=== PATIENT | female | born 1945 | race Caucasian/White ===

== ENCOUNTER → 2016-10-19 | Outpatient (CLI) | payer BC ==
[~2016-10-19] MED LIST: CHOL1CAP51 PO; CYAN3INJ IM; FLUD0.1T10 PO; HYDR10TA52 PO; LEVO125T72 PO; NXM/40 PO
--- NOTE | 2016-10-19 11:33 | DIAGNOSTIC IMAGING REPORT ---
RIGHT SECOND AND THIRD TOES 3 VIEWS CLINICAL HISTORY: Right toe pain status post trauma COMPARISON: None. DISCUSSION: No fractures or dislocations are visualized on the provided images. IMPRESSION: No fractures or dislocations identified. Electronically signed by: Jose Prater M.D. 10/19/2016 11:31 AM Dictated Date/Time: 10/19/2016 11:30 AM
== END | disposition home or self-care (01) ==
LOC: C.RAD 10:38
PROVIDERS: ATTEND Internal Medicine
DX: S99.921A Unspecified injury of right foot, initial encounter (principal); X58.XXXA Exposure to other specified factors, initial encounter

== ENCOUNTER → 2016-12-10 | Outpatient (CLI) | payer BC ==
[2016-12-10 12:21] LABS: BASO % 0.5 %; BASO ABS # 0.04 K/uL (0-0.2); COMPLETE YES; EOS % 1.3 %; HEMATOCRIT 42.8 % (37-47); IG% 0.1 %; LYMPH % 26.7 %; LYMPH ABS # 2.19 K/uL (1.2-3.4); MEAN CELL VOLUME 91.3 fL (80-100); MEAN CORPUSCULAR HEMOGLOBIN 29.6 pg (25-34); MEAN CORPUSCULAR HGB CONC 32.5 g/dl (32-36); MEAN PLATELET VOLUME 10.5 fL (7.4-10.4); NEUT % 61.4 %; PLATELET COUNT 371 K/uL (130-400); RED BLOOD COUNT 4.69 M/uL (4.2-5.4); WHITE BLOOD COUNT 8.21 K/uL (4.8-10.8)
[2016-12-10 13:11] LABS: ALT/SGPT 28 U/L (12-78); BLOOD UREA NITROGEN 15 mg/dl (7-18); BUN/CREATININE RATIO 20.6 (10-20); CARBON DIOXIDE 26 mmol/L (21-32); CHLORIDE 107 mmol/L (98-107); CHOLESTEROL 227 mg/dl (0-200); CREATININE 0.72 mg/dl (0.60-1.20); GLUCOSE 91 mg/dl (70-99); POTASSIUM 4.5 mmol/L (3.5-5.1); SODIUM 141 mmol/L (136-145); TRIGLYCERIDES 132 mg/dl (0-150); VERY LOW DENSITY LIPOPROT CALC 26 mg/dl
[2016-12-10 13:13] LABS: CALCIUM 9.7 mg/dl (8.5-10.1)
[2016-12-10 13:22] LABS: ALB/GLOB RATIO 0.9 (0.9-2); ALKALINE PHOSPHATASE 102 U/L (45-117); AST/SGOT 22 U/L (15-37); CHOLESTEROL/HDL RATIO 3.4; HDL CHOLESTEROL 67 mg/dl; LDL CHOLESTEROL CALCULATED 134 mg/dl; THYROID STIMULATING HORMONE 0.362 uIu/ml (0.300-4.500)
== END | disposition home or self-care (01) ==
LOC: C.LABBFT 08:41
PROVIDERS: ATTEND Nurse Practitioner
DX: D51.0 Vitamin B12 deficiency anemia due to intrinsic factor deficiency (principal); E21.3 Hyperparathyroidism, unspecified; E03.9 Hypothyroidism, unspecified

== ENCOUNTER → 2016-12-17 | Outpatient (CLI) | payer BC | END | disposition home or self-care (01) | LOC: C.PATHSPEC 13:31 | PROVIDERS: ATTEND Dermatology | DX: C44.41 Basal cell carcinoma of skin of scalp and neck (principal) ==

== ENCOUNTER → 2017-06-16 | Outpatient (CLI) | payer BC ==
--- NOTE | 2017-06-16 14:25 | MAMMOGRAPHY REPORT ---
BILATERAL DIGITAL SCREENING MAMMOGRAM TOMOSYNTHESIS WITH CAD: 06/16/2017 CLINICAL HISTORY: Routine screening. Patient has no complaints. TECHNIQUE: Breast tomosynthesis in addition to standard 2D mammography was performed. Current study was also evaluated with a Computer Aided Detection (CAD) system. COMPARISON: Comparison is made to exams dated: 06/15/2016 mammogram, 06/11/2015 mammogram, 4 mammogram, 05/22/2013 mammogram, 05/20/2012 mammogram, and 05/18/2011 mammogram - [facility]. BREAST COMPOSITION: There are scattered areas of fibroglandular density in both breasts. FINDINGS: No suspicious masses, calcifications, or areas of architectural distortion are noted in ei ther breast. There has been no significant interval change compared to prior exams. IMPRESSION: ACR BI-RADS CATEGORY 1: NEGATIVE There is no mammographic evidence of malignancy. A 1 year screening mammogram is recommended. The pa tient will receive written notification of the results. Approximately 10% of breast cancers are not detected with mammography. A negative mammographic report should not delay biopsy if a clinically suggestive mass is present. Yamile Wsahington M.D. ah/:06/16/2017 10:51:16 Infant Lead Teacher: Juliana TINSLEY(Ria)(M), [facility] letter sent: Normal 1/2 BI-RADS Code: ACR BI-RADS Category 1: Negative
== END ==
LOC: C.MAMM 09:41
PROVIDERS: ATTEND Internal Medicine
DX: Z12.31 Encounter for screening mammogram for malignant neoplasm of breast (principal)

== ENCOUNTER → 2018-04-01 | Outpatient (CLI) | payer BC | END | disposition home or self-care (01) | LOC: C.LABBFT 07:35 | PROVIDERS: ATTEND Physician Assistant Medical | DX: E03.9 Hypothyroidism, unspecified (principal) ==

== ENCOUNTER 2021-05-05 15:06 | Observation (INO) ==
[2021-05-05] MEDS ORDERED: ASPIRIN CHEW 324 MG PO STA ×2 (17:53→17:59)
--- NOTE | 2021-05-05 18:08 | Emergency Department Note ---
Impression & Plan Chest pain on exertion, [facility] (dyspnea on exertion) ED Provider Note NAME: FAHEEM MURRAY AGE: 76 SEX: F : 1945 ARRIVES VIA: Walk-In INFORMANT: Patient, ED PROVIDER(S): Ross Gonzalez DO CHIEF COMPLAINT: Chest pain HPI: The patient is a 76-year-old female who presented to the emergency department for an evaluation of chest pain. The patient describes anterior chest pain which she describes as a pressure. She states the pain began over the course the last few days. She is noticed it more with exertion. She also notices shortness of breath as well as chest pain. She denies having any nausea or vomiting. She denies having any back pain or abdominal pain. She has noticed no lower extremity pain. Pain at this time is significantly improved at rest. She called her family doctor to try to have an appointment to be seen but instead was referred to the emergency department for further evaluation. The patient states that the pain was worse when she walked back from triage. She is resting the bed and says that this helps her pain and she feels better. ROS: See above HPI for pertinent positives & negatives. A total of 10 systems reviewed and were otherwise negative. PAST MEDICAL HISTORY: See Below PAST SURGICAL HISTORY: See Below FAMILY HISTORY: See Below SOCIAL HISTORY: See Below HOME MEDICATIONS: See Below ALLERGIES: See Below VITALS: See Below PHYSICAL EXAMINATION: GENERAL: Patient is awake alert in no acute distress patient is resting comfortably and showing no signs of anxiety EYES: The conjunctivae are clear. The pupils are round and reactive. EARS, NOSE, MOUTH AND THROAT: The nose is without any evidence of any deformity. NECK: The neck is nontender and supple. RESPIRATORY: Normal respiratory effort is noted there is no evidence of wheezing rhonchi or rales CARDIOVASCULAR: Regular rate and rhythm noted there no murmurs rubs or gallops normal S1 normal S2. GASTROINTESTINAL: The abdomen is soft. Abdomen is nontender. MUSCULOSKELETAL/EXTREMITIES: There is no evidence of gross deformity full range of motion is noted in the hips and shoulders. SKIN: There is no obvious evidence of any rash. There are no petechiae, pallor or cyanosis noted. NEUROLOGIC: Patient is awake alert and oriented x3. MEDICAL DECISION MAKING: The patient is a 76-year-old female who presented to the emergency department for an evaluation of chest pain and shortness of breath with exertion. The patient started noticing increasing shortness of breath with any ambulation. The patient denies having any recent cough or fever. She was not seen by her primary care physician for the symptoms. I discussed the patient's laboratory and radiographic studies with her. I also discussed the limitations of the emergency department work-up her chest pain with her. At this time given the patient's age and comorbidities I do not feel that she would be a good candidate for outpatient work-up. For this reason I discussed her case with the on-call [facility] hospitalist. The patient was agreeable to this plan. She was treated with aspirin in the emergency department. Triage Nursing notes reviewed. Prior medical records reviewed Vital Signs: reviewed and remarkable for no significant abnormalities Differential diagnosis: Cardiac ischemia, aortic dissection, pulmonary embolism, pneumothorax, pneumonia, pericarditis, myocarditis, esophageal rupture, GERD, cholecystitis, pancreatitis, musculoskeletal, as well as other pathologies. ER treatment provided: See below Diagnostics interpreted by me: ECG: EKG was obtained in the emergency department. My interpretation is normal sinus rhythm at 93 bpm. There was no ectopy. Anterior T wave inversions were noted. This was compared to a tracing from October 312020. No significant changes were noted. Cardiac Monitoring: An order was placed for continuous cardiac monitoring. The monitor shows a rate of 76 bpm with sinus rhythm. Laboratory studies: As stated above and show below. Imaging studies: See below Consultation(s): I discussed this case with Dr. Navarro. He will evaluate the patient in the emergency department for further management and disposition. Past Med/Surg History Medical History (Updated 05/06/21 @ 00:04 by Ross Gonzalez DO) Abnormal liver enzymes Accidental medication overdose Acute hypotension Anisocoria Basal cell carcinoma Diarrhea History of basal cell carcinoma Hyperparathyroidism Osteoporosis Seborrheic keratosis Thrombocytosis Surgical History History of colonoscopy History of hysteroscopy S/P cholecystectomy (09/29/12) Family History Mother Heart disease Hypertension Brother Heart disease Denies family history of Ovarian cancer Prostate cancer Diabetes Myocardial infarction Breast cancer Colorectal cancer Social History Smoking Status: Never smoker Second Hand Exposure: Yes; Hx Alcohol Use: No Hx Substance Use: No Preferred Language: Lao Communication Ability: Effective Visual Impairment: No Limitations Hearing Ability: Normal [employer] Application Developer Required: No Beliefs That Will Affect Care: None marital status: Current Living Situation: Spouse current occupational status: retired current occupation: retired from career working with the [email or web address] office at [employer] Feels Safe at Home: Yes Dental Care, Regularly: No Physical Activity Frequency: 3-4 Times per Week Seatbelt Use: always Sunscreen Use: Yes Assistive Devices: Glasses Allergies Allergies Allergy/AdvReac Type Severity Reaction Status Date / Time No Known Allergies Allergy Verified 05/05/21 18:24 Home Meds Home Medications Medication Instructions Recorded Confirmed cyanocobalamin (vitamin B-12) 1,000 mcg IM MONTHLY ml 01/25/19 05/05/21 1,000 mcg/mL injection solution alendronate 35 mg tablet 35 mg PO WK 10/31/20 05/05/21 calcium carbonate 600 mg calcium 1,500 mg PO QAM 05/05/21 05/05/21 (1,500 mg) tablet cholecalciferol (vitamin D3) 25 25 mcg PO QAM 05/05/21 05/05/21 mcg (1,000 unit) capsule esomeprazole magnesium 40 mg 40 mg PO QAM 05/05/21 05/05/21 capsule,delayed release fludrocortisone 0.1 mg tablet 0.05 mg PO QAM 05/05/21 05/05/21 hydrocortisone 10 mg tablet 5 - 15 mg PO BID 05/05/21 05/05/21 levothyroxine 100 mcg tablet 100 mcg PO QAM 05/05/21 05/05/21 Results & Data (ED) Vital Signs Vital Signs - 24 hr 05/05/21 15:20 05/05/21 17:46 05/05/21 17:58 Temperature 36.3 C L Temperature Source Temporal Artery Scan Pulse Rate 101 H 80 79 Pulse Rate from SpO2 Sensor 80 81 Pulse Rhythm Regular Pulse Strength Normal Respiratory Rate 20 14 17 Respiratory Effort / Characteristics Non-Labored Spontaneous Respiratory Depth Normal Respiratory Pattern Regular Blood Pressure 128/77 129/95 164/82 H Blood Pressure Mean 94 106 109 Blood Pressure Position Sitting Pulse Oximetry 97 96 98 Oxygen Delivery Method Room Air Sepsis Recent Fever Within 48 Hours No Sepsis New/Unexplained Change in Mental Status N/A Sepsis Action Taken by Nursing No Action Required 05/05/21 18:00 05/05/21 18:15 05/05/21 18:30 Temperature Temperature Source Pulse Rate 80 85 79 Pulse Rate from SpO2 Sensor 80 86 80 Pulse Rhythm Pulse Strength Respiratory Rate 16 19 14 Respiratory Effort / Characteristics Respiratory Depth Respiratory Pattern Blood Pressure 129/94 157/80 H 150/88 H Blood Pressure Mean 105 105 108 Blood Pressure Position Pulse Oximetry 98 96 98 Oxygen Delivery Method Sepsis Recent Fever Within 48 Hours Sepsis New/Unexplained Change in Mental Status Sepsis Action Taken by Nursing 05/05/21 18:45 05/05/21 19:00 05/05/21 19:15 Temperature Temperature Source Pulse Rate 80 81 75 Pulse Rate from SpO2 Sensor 80 80 76 Pulse Rhythm Pulse Strength Respiratory Rate 21 19 17 Respiratory Effort / Characteristics Respiratory Depth Respiratory Pattern Blood Pressure 135/79 160/86 H 135/80 Blood Pressure Mean 97 110 98 Blood Pressure Position Pulse Oximetry 98 98 98 Oxygen Delivery Method Sepsis Recent Fever Within 48 Hours Sepsis New/Unexplained Change in Mental Status Sepsis Action Taken by Nursing 05/05/21 19:30 05/05/21 19:45 05/05/21 20:00 Temperature Temperature Source Pulse Rate 75 75 77 Pulse Rate from SpO2 Sensor 76 75 78 Pulse Rhythm Pulse Strength Respiratory Rate 13 14 18 Respiratory Effort / Characteristics Respiratory Depth Respiratory Pattern Blood Pressure 159/93 H 136/72 128/69 Blood Pressure Mean 115 93 88 Blood Pressure Position Pulse Oximetry 98 98 98 Oxygen Delivery Method Sepsis Recent Fever Within 48 Hours Sepsis New/Unexplained Change in Mental Status Sepsis Action Taken by Nursing 05/05/21 20:15 05/05/21 20:30 05/05/21 20:45 Temperature Temperature Source Pulse Rate 78 76 76 Pulse Rate from SpO2 Sensor 78 76 81 Pulse Rhythm Pulse Strength Respiratory Rate 13 16 16 Respiratory Effort / Characteristics Respiratory Depth Respiratory Pattern Blood Pressure 128/77 148/78 H 139/74 Blood Pressure Mean 94 101 95 Blood Pressure Position Pulse Oximetry 98 99 97 Oxygen Delivery Method Sepsis Recent Fever Within 48 Hours Sepsis New/Unexplained Change in Mental Status Sepsis Action Taken by Nursing 05/05/21 21:00 05/05/21 21:15 05/05/21 21:30 Temperature Temperature Source Pulse Rate 84 78 78 Pulse Rate from SpO2 Sensor 80 81 78 Pulse Rhythm Pulse Strength Respiratory Rate 22 12 12 Respiratory Effort / Characteristics Respiratory Depth Respiratory Pattern Blood Pressure 155/85 H 143/79 H 128/76 Blood Pressure Mean 108 100 93 Blood Pressure Position Pulse Oximetry 95 99 99 Oxygen Delivery Method Sepsis Recent Fever Within 48 Hours Sepsis New/Unexplained Change in Mental Status Sepsis Action Taken by Nursing 05/05/21 21:45 05/05/21 23:00 Temperature Temperature Source Pulse Rate 84 76 Pulse Rate from SpO2 Sensor 83 Pulse Rhythm Pulse Strength Respiratory Rate 14 18 Respiratory Effort / Characteristics Respiratory Depth Respiratory Pattern Blood Pressure 148/76 H 121/66 Blood Pressure Mean 100 84 Blood Pressure Position Pulse Oximetry 98 97 Oxygen Delivery Method Sepsis Recent Fever Within 48 Hours Sepsis New/Unexplained Change in Mental Status Sepsis Action Taken by [facility] Medications Current Medication List: was personally reviewed by me Laboratory Data Attestation: I reviewed the patient's lab results. Result diagrams: 05/05/21 18:07 05/05/21 18:07 Lab Results 05/05/21 05/05/21 05/05/21 Range/Units 18:07 18:07 18:07 WBC 12.54 H (4.8-10.8) K/uL RBC 4.85 (4.2-5.4) M/uL Hgb 14.7 (12.0-16.0) g/dL Hct 43.9 (37-47) % MCV 90.5 (80-100) fL MCH 30.3 (25-34) pg MCHC 33.5 (32-36) g/dL RDW Std Deviation 43.6 (36.4-46.3) fL RDW Coeff of Chano 13.1 (11.5-14.5) % Plt Count 413 H (130-400) K/uL MPV 9.9 (7.4-10.4) fL Immature Gran % (Auto) 0.6 % Neut % (Auto) 57.9 % Lymph % (Auto) 27.6 % Harrison % (Auto) 12.0 % Eos % (Auto) 1.4 % Baso % (Auto) 0.5 % Neut # (Auto) 7.27 H (1.4-6.5) K/uL Lymph # (Auto) 3.46 H (1.2-3.4) K/uL Harrison # (Auto) 1.51 H (0.11-0.59) K/uL Eos # (Auto) 0.17 (0-0.5) K/uL Baso # (Auto) 0.06 (0-0.2) K/uL Immature Gran # (Auto) 0.07 H (0.00-0.02) K/uL PT 9.8 (9.0-12.0) Seconds INR 1.0 (0.9-1.1) APTT 26.5 (21.0-31.0) Seconds PTT Ratio 1.0 Sodium 130 L (136-145) mmol/L Potassium 4.9 (3.5-5.1) mmol/L Chloride 98 (98-107) mmol/L Carbon Dioxide 26 (21-32) mmol/L Anion Gap 6.0 (3-11) BUN 21 H (7-18) mg/dl Creatinine 1.06 (0.6-1.2) mg/dl Est Cr Clr Drug Dosing 45.9 ml/min Est GFR ( Amer) 59.5 ml/min Est GFR (Non-Af Amer) 51.3 ml/min BUN/Creatinine Ratio 19.8 (10-20) Glucose 100 H (70-99) mg/dl Calcium 10.0 (8.5-10.1) mg/dl Total Bilirubin 0.2 (0.2-1) mg/dl AST 41 H (15-37) U/L ALT 45 (12-78) U/L Alkaline Phosphatase 100 (45-117) U/L Troponin I < 0.015 (0-0.045) ng/ml Total Protein 8.7 H (6.4-8.2) gm/dl Albumin 3.9 (3.4-5.0) gm/dl Globulin 4.8 H (2.5-4.0) gm/dl Albumin/Globulin Ratio 0.8 L (0.9-2) Lipase 136 (73-393) U/L COVID-19 Eval Order SARS-CoV-2 (PCR) (Negative) 05/05/21 05/05/21 Range/Units 18:13 18:13 WBC (4.8-10.8) K/uL RBC (4.2-5.4) M/uL Hgb (12.0-16.0) g/dL Hct (37-47) % MCV (80-100) fL MCH (25-34) pg MCHC (32-36) g/dL RDW Std Deviation (36.4-46.3) fL RDW Coeff of Chano (11.5-14.5) % Plt Count (130-400) K/uL MPV (7.4-10.4) fL Immature Gran % (Auto) % Neut % (Auto) % Lymph % (Auto) % Harrison % (Auto) % Eos % (Auto) % Baso % (Auto) % Neut # (Auto) (1.4-6.5) K/uL Lymph # (Auto) (1.2-3.4) K/uL Harrison # (Auto) (0.11-0.59) K/uL Eos # (Auto) (0-0.5) K/uL Baso # (Auto) (0-0.2) K/uL Immature Gran # (Auto) (0.00-0.02) K/uL PT (9.0-12.0) Seconds INR (0.9-1.1) APTT (21.0-31.0) Seconds PTT Ratio Sodium (136-145) mmol/L Potassium (3.5-5.1) mmol/L Chloride (98-107) mmol/L Carbon Dioxide (21-32) mmol/L Anion Gap (3-11) BUN (7-18) mg/dl Creatinine (0.6-1.2) mg/dl Est Cr Clr Drug Dosing ml/min Est GFR ( Amer) ml/min Est GFR (Non-Af Amer) ml/min BUN/Creatinine Ratio (10-20) Glucose (70-99) mg/dl Calcium (8.5-10.1) mg/dl Total Bilirubin (0.2-1) mg/dl AST (15-37) U/L ALT (12-78) U/L Alkaline Phosphatase (45-117) U/L Troponin I (0-0.045) ng/ml Total Protein (6.4-8.2) gm/dl Albumin (3.4-5.0) gm/dl Globulin (2.5-4.0) gm/dl Albumin/Globulin Ratio (0.9-2) Lipase (73-393) U/L COVID-19 Eval Order Covid19 at [facility] SARS-CoV-2 (PCR) NEGATIVE (Negative) Administered Medications Potassium Chloride/Sodium Chloride (Normal Saline W/20 Meq Kcl) 20 meq in 1,000 mls @ 100 mls/hr IV .Q10H RODRI Stop: 06/04/21 22:04 Last Admin: 05/05/21 22:36 Dose: 100 mls/hr Documented by: [id number] Discontinued Medications Aspirin (Aspirin Chew 324 Mg) 324 mg PO NOW STA Stop: 05/05/21 17:54 Last Admin: 05/05/21 18:13 Dose: 324 mg Documented by: [id number] Aspirin (Aspirin Chew 324 Mg) 324 mg PO NOW STA Stop: 05/05/21 18:00 Last Admin: 05/05/21 18:13 Dose: Not Given Documented by: [id number] Nitroglycerin (Nitroglycerin 2% Ointment 30gm Tube) 0.5 inch EXT NOW STA Stop: 05/05/21 22:02 Last Admin: 05/05/21 22:34 Dose: 0.5 inch Documented by: [id number] Imaging Data Radiologist's Impression: Chest X-Ray 05/05/21 17:53 XR chest 1V portable CLINICAL HISTORY: Chest Pain COMPARISON STUDY: October 31, 2020 FINDINGS: No pneumothorax. No pleural effusion. No large infiltrates or consolidative lesions are seen. Cardiomediastinal silhouette is within normal limits in size. No significant pulmonary vascular congestion.. Osseous structures: Mild osteopenia and minimal degenerative changes of the spine. IMPRESSION: 1. No large infiltrates or consolidative lesions. ACT 112: Negative or not required by law. The above report was generated using voice recognition software. It may contain grammatical, syntax or spelling errors. Electronically signed by: Yuli Hathaway DO 05/05/2021 8:11 PM Discharge Plan Visit Data Chief Complaint: Shortness of Breath/Dyspnea Stated Complaint: CHEST PRESSURE, SOB,DIZZY ED Provider: Ross Gonzalez Discharge Problem: Chest pain on exertion, [facility] (dyspnea on exertion) Patient Disposition: Being Evaluated by Hospitalist Condition: Good Forms Stand Alone Forms: [employer] Prescriptions Prescriptions: No Action cyanocobalamin (vitamin B-12) 1,000 mcg/mL solution 1,000 mcg IM MONTHLY RF: 0 alendronate 35 mg tablet 35 mg PO WK RF: 0 levothyroxine 100 mcg tablet 100 mcg PO QAM RF: 0 calcium carbonate 600 mg calcium (1,500 mg) tablet 1,500 mg PO QAM RF: 0 esomeprazole magnesium 40 mg capsule,delayed release(DR/EC) 40 mg PO QAM RF: 0 hydrocortisone 10 mg tablet 5 - 15 mg PO BID RF: 0 fludrocortisone 0.1 mg tablet 0.05 mg PO QAM RF: 0 cholecalciferol (vitamin D3) 25 mcg (1,000 unit) capsule 25 mcg PO QAM RF: 0 Referrals Referrals: Rafita Onofre III, MD [Primary Care Provider] -
[2021-05-05 18:21] LABS: Basophils # (auto) 0.06 K/uL (0-0.2); Basophils % (auto) 0.5 %; Eosinophils # (auto) 0.17 K/uL (0-0.5); Eosinophils % (auto) 1.4 %; Hematocrit (blood only) 43.9 % (37-47); Hemoglobin 14.7 g/dL (12.0-16.0); Immature Granulocytes # (auto) 0.07 K/uL (0.00-0.02); Immature Granulocytes % (auto) 0.6 %; Lymphocytes # (auto) 3.46 K/uL (1.2-3.4); Lymphocytes % (auto) 27.6 %; Mean Corpuscular Hemoglobin 30.3 pg (25-34); Mean Corpuscular Hgb Conc 33.5 g/dL (32-36); Mean Corpuscular Volume 90.5 fL (80-100); Mean Platelet Volume 9.9 fL (7.4-10.4); Monocytes # (auto) 1.51 K/uL (0.11-0.59); Neutrophils # (auto) 7.27 K/uL (1.4-6.5); Neutrophils % (auto) 57.9 %; Platelet Count 413 K/uL (130-400); RDW Coefficient of Variation 13.1 % (11.5-14.5); RDW Standard Deviation 43.6 fL (36.4-46.3); Red Blood Count 4.85 M/uL (4.2-5.4); White Blood Count 12.54 K/uL (4.8-10.8)
[2021-05-05 18:36] LABS: Partial Thromboplastin Time 26.5 Seconds (21.0-31.0); Prothrombin Time 9.8 Seconds (9.0-12.0)
[2021-05-05 18:46] LABS: Alanine Aminotransferase 45 U/L (12-78); Albumin Level 3.9 gm/dl (3.4-5.0); Aspartate Aminotransferase 41 U/L (15-37); BUN Creatinine Ratio 19.8 (10-20); Blood Urea Nitrogen 21 mg/dl (7-18); Carbon Dioxide 26 mmol/L (21-32); Chloride 98 mmol/L (98-107); Creatinine Clr Calc Pharmacy 45.9 ml/min; Est GFR (African American) 59.5 ml/min; Est GFR (Non-African American) 51.3 ml/min; Glucose 100 mg/dl (70-99); Lipase 136 U/L (73-393); Potassium 4.9 mmol/L (3.5-5.1); Sodium 130 mmol/L (136-145)
[2021-05-05 18:51] LABS: Albumin Globulin Ratio 0.8 (0.9-2); Alkaline Phosphatase 100 U/L (45-117); Bilirubin,Total 0.2 mg/dl (0.2-1); Globulin 4.8 gm/dl (2.5-4.0); Total Protein 8.7 gm/dl (6.4-8.2); Troponin I < 0.015 ng/ml (0-0.045)
--- NOTE | 2021-05-05 20:12 | XRay Report ---
XR chest 1V portable CLINICAL HISTORY: Chest Pain COMPARISON STUDY: October 31, 2020 FINDINGS: No pneumothorax. No pleural effusion. No large infiltrates or consolidative lesions are seen. Cardiomediastinal silhouette is within normal limits in size. No significant pulmonary vascular congestion.. Osseous structures: Mild osteopenia and minimal degenerative changes of the spine. IMPRESSION: 1. No large infiltrates or consolidative lesions. ACT 112: Negative or not required by law. The above report was generated using voice recognition software. It may contain grammatical, syntax o r spelling errors. Electronically signed by: Yuli Hathaway DO 05/05/2021 8:11 PM
--- NOTE | 2021-05-05 21:52 | History & Physical Report ---
Date of Service May 05, 2021 Assessment & Plan (1) Chest pain on exertion: Plan: Substernal chest pressure/DUKE- The patient will be admitted to telemetry for serial cardiac enzymes, serial EKG's, cardiac rhythm monitoring and a 2-D echocardiogram with Dopplers. Patient did receive aspirin 324 mg from the ED Start aspirin 81 mg every morning Add Nitropaste 1/2 inch anterior chest wall every 6 hours Acetaminophen 600 mg p.o. every 6 hours as needed mild pain or fever EKG shows normal sinus rhythm with no acute ST-T changes If work-up is negative, patient should have a stress echocardiogram (2) DUKE (dyspnea on exertion): Plan: See above (3) Hypothyroidism: Plan: Continue levothyroxine 100 mcg every morning (4) Dyslipidemia: Plan: Reported as a history but no medications Check a fasting lipid panel (5) Chronic reflux esophagitis: Plan: Continue esomeprazole/pantoprazole (6) Philadelphia's disease: Plan: Continue fludrocortisone 0.05 mg p.o. every morning Her baseline hydrocortisone dosing is 15 mg every morning and 5 mg every 4PM If remains in hospital, will change to 15 mg p.o. twice daily for stress dosing (7) Vitamin B12 deficiency: Plan: Takes B12 1000 mcg IM monthly as an outpatient History of Present Illness Chief Complaint: The patient presents to the emergency department with complaint of fatigue over the past few days, but today developed substernal chest pressure and shortness of breath that increased in frequency and intensity as the day progressed, but in all instances was relieved by rest. Primary Care Provider: Rafita Onofre MD The patient is a 76-year-old female with a past tree including vitamin B12 deficiency, basal cell carcinoma, vitamin D deficiency, pro cyst. 5 glucose, hypothyroid is him high for. Thyroidism, distal anemia, chronic reflux fasciitis, anisocoria and Derrick's disease. She presents with symptoms as noted above. Prior the past few days, she has had no significant symptoms like these. She does periodically have fatigue associated with her Philadelphia's disease, but not to the extent as noted over the past few days. Allergies Allergy/AdvReac Type Severity Reaction Status Date / Time No Known Allergies Allergy Verified 05/05/21 18:24 Home Medications Medication Instructions Recorded Confirmed Type cyanocobalamin (vitamin B-12) 1,000 mcg IM MONTHLY ml 01/25/19 05/05/21 History 1,000 mcg/mL injection solution alendronate 35 mg tablet 35 mg PO WK 10/31/20 05/05/21 History calcium carbonate 600 mg calcium 1,500 mg PO QAM 05/05/21 05/05/21 History (1,500 mg) tablet cholecalciferol (vitamin D3) 25 25 mcg PO QAM 05/05/21 05/05/21 History mcg (1,000 unit) capsule esomeprazole magnesium 40 mg 40 mg PO QAM 05/05/21 05/05/21 History capsule,delayed release fludrocortisone 0.1 mg tablet 0.05 mg PO QAM 05/05/21 05/05/21 History hydrocortisone 10 mg tablet 5 - 15 mg PO BID 05/05/21 05/05/21 History levothyroxine 100 mcg tablet 100 mcg PO QAM 05/05/21 05/05/21 History Past Med/Surg History Medical History (Updated 05/06/21 @ 00:04 by Ross Gonzalez DO) Abnormal liver enzymes Accidental medication overdose Acute hypotension Anisocoria Basal cell carcinoma Diarrhea History of basal cell carcinoma Hyperparathyroidism Osteoporosis Seborrheic keratosis Thrombocytosis Surgical History History of colonoscopy History of hysteroscopy S/P cholecystectomy (09/29/12) Family History Mother Heart disease Hypertension Brother Heart disease Denies family history of Ovarian cancer Prostate cancer Diabetes Myocardial infarction Breast cancer Colorectal cancer Social History Smoking Status: Never smoker Second Hand Exposure: Yes; Hx Alcohol Use: No Hx Substance Use: No Preferred Language: Irish Communication Ability: Effective Visual Impairment: No Limitations Hearing Ability: Normal Truck Farmer Required: No Beliefs That Will Affect Care: None marital status: Current Living Situation: Spouse current occupational status: retired 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 [employer] Feels Safe at Home: Yes Dental Care, Regularly: No Physical Activity Frequency: 3-4 Times per Week Seatbelt Use: always Sunscreen Use: Yes Assistive Devices: Glasses Review of Systems Review of Systems: The patient denies palpitations, cough, lower extremity swelling, sore throat, fevers, chills, sweats, nausea, vomiting, diarrhea , constipation, abdominal pain, pelvic pain, blood in urine or stool, dysuria, urinary frequency or urgency, lightheadedness, dizziness, headache, memory loss, loss of consciousness, rash, abnormal bruising or bleeding, imbalance, focal weakness, numbness or tingling in arms or legs, generalized arthralgias or myalgias, back or neck pain, or night sweats. The review of systems is otherwise negative other than for that already noted above, and at least 10 systems have been reviewed. Physical Exam Physical Exam: The patient is awake, alert and oriented 3, well developed and well nourished, normocephalic and atraumatic, lying in bed and in no acute distress. HEENT--PERRL, EOMI, mucous membranes and oropharynx normal. Neck--supple. No JVD. No bruits. Thyroid normal, trachea midline, no adenopathy. Heart--normal S1 and S2. No murmurs, rubs or gallops. Lungs--clear bilaterally, no respiratory distress, no accessory muscle use. Abdomen--normal bowel sounds and soft. Nontender. Nondistended, no hernias or masses, no organomegaly. Extremities--no cyanosis or clubbing. No edema. Dermatologic--normal skin turgor, normal color, no abnormal lymph nodes, no rash. Neurologic--cranial nerves II through XII grossly intact. Rheumatologic--normal range of motion. Psychiatric--normal affect. Results & Data Results & Data ([facility]) Vital Signs (Past 12 Hours) Vital Signs Temp Pulse Resp BP Pulse Ox 05/05/21 21:30 78 12 128/76 99 05/05/21 21:15 78 12 143/79 H 99 05/05/21 21:00 84 22 155/85 H 95 05/05/21 20:45 76 16 139/74 97 05/05/21 20:30 76 16 148/78 H 99 05/05/21 20:15 78 13 128/77 98 05/05/21 20:00 77 18 128/69 98 05/05/21 19:45 75 14 136/72 98 05/05/21 19:30 75 13 159/93 H 98 05/05/21 19:15 75 17 135/80 98 05/05/21 19:00 81 19 160/86 H 98 05/05/21 18:45 80 21 135/79 98 05/05/21 18:30 79 14 150/88 H 98 05/05/21 18:15 85 19 157/80 H 96 05/05/21 18:00 80 16 129/94 98 05/05/21 17:58 79 17 164/82 H 98 05/05/21 17:46 80 14 129/95 96 05/05/21 15:20 97.3 F L 101 H 20 128/77 97 Laboratory Results Laboratory Results WBC 12.54 K/uL (4.8-10.8) H 05/05/21 18:07 RBC 4.85 M/uL (4.2-5.4) 05/05/21 18:07 Hgb 14.7 g/dL (12.0-16.0) 05/05/21 18:07 Hct 43.9 % (37-47) 05/05/21 18:07 MCV 90.5 fL (80-100) 05/05/21 18:07 MCH 30.3 pg (25-34) 05/05/21 18:07 MCHC 33.5 g/dL (32-36) 05/05/21 18:07 RDW Std Deviation 43.6 fL (36.4-46.3) 05/05/21 18:07 RDW Coeff of [place] 13.1 % (11.5-14.5) 05/05/21 18:07 Plt Count 413 K/uL (130-400) H 05/05/21 18:07 MPV 9.9 fL (7.4-10.4) 05/05/21 18:07 Immature Gran % (Auto) 0.6 % 05/05/21 18:07 Neut % (Auto) 57.9 % 05/05/21 18:07 Lymph % (Auto) 27.6 % 05/05/21 18:07 [place] % (Auto) 12.0 % 05/05/21 18:07 Eos % (Auto) 1.4 % 05/05/21 18:07 Baso % (Auto) 0.5 % 05/05/21 18:07 Neut # (Auto) 7.27 K/uL (1.4-6.5) H 05/05/21 18:07 Lymph # (Auto) 3.46 K/uL (1.2-3.4) H 05/05/21 18:07 [place] # (Auto) 1.51 K/uL (0.11-0.59) H 05/05/21 18:07 Eos # (Auto) 0.17 K/uL (0-0.5) 05/05/21 18:07 Baso # (Auto) 0.06 K/uL (0-0.2) 05/05/21 18:07 Immature Gran # (Auto) 0.07 K/uL (0.00-0.02) H 05/05/21 18:07 PT 9.8 Seconds (9.0-12.0) 05/05/21 18:07 INR 1.0 (0.9-1.1) 05/05/21 18:07 APTT 26.5 Seconds (21.0-31.0) 05/05/21 18:07 PTT Ratio 1.0 05/05/21 18:07 Sodium 130 mmol/L (136-145) L 05/05/21 18:07 Potassium 4.9 mmol/L (3.5-5.1) 05/05/21 18:07 Chloride 98 mmol/L (98-107) 05/05/21 18:07 Carbon Dioxide 26 mmol/L (21-32) 05/05/21 18:07 Anion Gap 6.0 (3-11) 05/05/21 18:07 BUN 21 mg/dl (7-18) H 05/05/21 18:07 Creatinine 1.06 mg/dl (0.6-1.2) 05/05/21 18:07 Est Cr Clr Drug Dosing 45.9 ml/min 05/05/21 18:07 Est GFR ( Amer) 59.5 ml/min 05/05/21 18:07 Est GFR (Non-Af Amer) 51.3 ml/min 05/05/21 18:07 BUN/Creatinine Ratio 19.8 (10-20) 05/05/21 18:07 Glucose 100 mg/dl (70-99) H 05/05/21 18:07 Calcium 10.0 mg/dl (8.5-10.1) 05/05/21 18:07 Total Bilirubin 0.2 mg/dl (0.2-1) 05/05/21 18:07 AST 41 U/L (15-37) H 05/05/21 18:07 ALT 45 U/L (12-78) 05/05/21 18:07 Alkaline Phosphatase 100 U/L (45-117) 05/05/21 18:07 Troponin I < 0.015 ng/ml (0-0.045) 05/05/21 18:07 Total Protein 8.7 gm/dl (6.4-8.2) H 05/05/21 18:07 Albumin 3.9 gm/dl (3.4-5.0) 05/05/21 18:07 Globulin 4.8 gm/dl (2.5-4.0) H 05/05/21 18:07 Albumin/Globulin Ratio 0.8 (0.9-2) L 05/05/21 18:07 Lipase 136 U/L (73-393) 05/05/21 18:07 COVID-19 Eval Order Covid19 at [facility] 05/05/21 18:13 SARS-CoV-2 (PCR) NEGATIVE (Negative) 05/05/21 18:13 Impressions Chest X-Ray 05/05/21 17:53 XR chest 1V portable CLINICAL HISTORY: Chest Pain COMPARISON STUDY: October 31, 2020 FINDINGS: No pneumothorax. No pleural effusion. No large infiltrates or consolidative lesions are seen. Cardiomediastinal silhouette is within normal limits in size. No significant pulmonary vascular congestion.. Osseous structures: Mild osteopenia and minimal degenerative changes of the spine. IMPRESSION: 1. No large infiltrates or consolidative lesions. ACT 112: Negative or not required by law. The above report was generated using voice recognition software. It may contain grammatical, syntax or spelling errors. Electronically signed by: Yuli Hathaway DO 05/05/2021 8:11 PM ECG Additional Comments: FAHEEM MURRAY ID:[id number] 05-MAY-2021 15:28:32 [facility]- EDSTAT ROUTINE RETRIEVAL Normal sinus rhythm Normal ECG When compared with ECG of 31-OCT-2020 19:08, No significant change was found 25mm/s 10mm/mV 150Hz 9.0.9 12SL 241 KRUPA: 10 Unconfirmed Vent. rate 93 BPM KS interval 158 ms QRS duration 64 ms QT/QTc 324/402 ms P-R-T axes 54 34 34 1945 (76 yr) Female 1in 0lb Room: L Code Status & VTE Plan Code Status Full code VTE Prophylaxis Plan VTE Prophylaxis will be ordered: Yes PG Care Time/CCT Total # of Minutes Spent Total Time Spent with Patient: Total time spent is greater than 50% in coordination of care (as documented) at patient's floor/unit and/or counseling patient: Coding Level of Care Code INT OBSERVATION CARE 70M LVL 3 Diagnoses Chest pain on exertion R07.9 DUKE (dyspnea on exertion) R06.00 Hypothyroidism E03.9 Dyslipidemia E78.5 Chronic reflux esophagitis K21.0 Derrick's disease E27.1 Vitamin B12 deficiency E53.8
[2021-05-05] MEDS ORDERED: NITROGLYCERIN 2% OINTMENT 30GM TUBE EXT STA (22:01)
[2021-05-05] MEDS: NSS + 20MEQ KCL 20 MEQ/1,000 ML BAG IV SCH (22:36)
[2021-05-06] MEDS ORDERED: ONDANSETRON INJ 2 MG/ML 2 ML VIAL IV PRN (00:29)
[2021-05-06] MEDS ORDERED: ACETAMINOPHEN 325 MG TAB PO PRN (00:29)
[2021-05-06] MEDS ORDERED: NSS + 20MEQ KCL 20 MEQ/1,000 ML BAG IV SCH (00:45)
[2021-05-06] MEDS: NITROGLYCERIN 2% OINTMENT 30GM TUBE EXT SCH ×3 (01:37→12:07)
[2021-05-06 01:47] LABS: Basophils # (auto) 0.04 K/uL (0-0.2); Basophils % (auto) 0.4 %; Eosinophils # (auto) 0.23 K/uL (0-0.5); Eosinophils % (auto) 2.4 %; Hematocrit (blood only) 42.2 % (37-47); Hemoglobin 13.8 g/dL (12.0-16.0); Immature Granulocytes # (auto) 0.05 K/uL (0.00-0.02); Immature Granulocytes % (auto) 0.5 %; Lymphocytes # (auto) 3.18 K/uL (1.2-3.4); Lymphocytes % (auto) 32.9 %; Mean Corpuscular Hemoglobin 29.6 pg (25-34); Mean Corpuscular Hgb Conc 32.7 g/dL (32-36); Mean Corpuscular Volume 90.4 fL (80-100); Mean Platelet Volume 9.6 fL (7.4-10.4); Monocytes # (auto) 0.94 K/uL (0.11-0.59); Monocytes % (auto) 9.7 %; Neutrophils # (auto) 5.24 K/uL (1.4-6.5); Neutrophils % (auto) 54.1 %; Platelet Count 381 K/uL (130-400); RDW Coefficient of Variation 13.3 % (11.5-14.5); Red Blood Count 4.67 M/uL (4.2-5.4); White Blood Count 9.68 K/uL (4.8-10.8)
[2021-05-06 02:08] LABS: Albumin Level 3.2 gm/dl (3.4-5.0); BUN Creatinine Ratio 23.2 (10-20); Calcium 9.3 mg/dl (8.5-10.1); Creatinine Clr Calc Pharmacy 54.6 ml/min; Est GFR (African American) 73.5 ml/min; Est GFR (Non-African American) 63.4 ml/min; Potassium 4.2 mmol/L (3.5-5.1)
[2021-05-06 02:12] LABS: Albumin Globulin Ratio 0.8 (0.9-2); Bilirubin,Total 0.3 mg/dl (0.2-1); Globulin 4.1 gm/dl (2.5-4.0); Total Protein 7.3 gm/dl (6.4-8.2)
[2021-05-06 02:15] LABS: Prothrombin Time 10.1 Seconds (9.0-12.0)
[2021-05-06] MEDS ORDERED: LEVOTHYROXINE SODIUM 100 MCG TABLET PO SCH (06:30)
[2021-05-06] MEDS ORDERED: FLUDROCORTISONE ACETATE 0.1 MG TAB PO SCH (09:00)
[2021-05-06] MEDS ORDERED: CALCIUM CARBONATE 1250MG TAB PO SCH (09:00)
[2021-05-06] MEDS: NSS + 20MEQ KCL 20 MEQ/1,000 ML BAG IV SCH (09:00)
[2021-05-06] MEDS ORDERED: PANTOprazole 40 MG TAB PO SCH (09:00)
[2021-05-06] MEDS ORDERED: ASPIRIN 81 MG ECTAB PO SCH (09:00)
[2021-05-06] MEDS ORDERED: HYDROCORTISONE 10 MG TAB PO SCH (09:00)
[2021-05-06] MEDS ORDERED: CHOLECALCIFEROL 1,000 UNITS 25 MCG TAB PO SCH (09:00)
[2021-05-06 09:32] LABS: D Dimer 450 ug/L FEU (0-500)
--- NOTE | 2021-05-06 10:03 | XCELERA ---
[id number]
--- NOTE | 2021-05-06 16:16 | Electrocardiogram Report ---
Test Reason : Blood Pressure : / mmHG Vent. Rate : 093 BPM Atrial Rate : 093 BPM P-R Int : 158 ms QRS Dur : 064 ms QT Int : 324 ms P-R-T Axes : 054 034 034 degrees QTc Int : 402 ms Normal sinus rhythm Normal ECG When compared with ECG of 31-OCT-2020 19:08, No significant change was found Confirmed by Ross Art ([id number]) on 05/06/2021 4:15:58 PM Referred By: REFERRED SELF Confirmed By:Ross Art
--- NOTE | 2021-05-06 16:27 | Electrocardiogram Report ---
Test Reason : Blood Pressure : / mmHG Vent. Rate : 085 BPM Atrial Rate : 085 BPM P-R Int : 166 ms QRS Dur : 062 ms QT Int : 358 ms P-R-T Axes : 059 039 039 degrees QTc Int : 426 ms Normal sinus rhythm Nonspecific T wave abnormality Abnormal ECG When compared with ECG of 05-MAY-2021 15:28, (unconfirmed) No significant change was found Confirmed by Ross Art ([id number]) on 05/06/2021 4:26:47 PM Referred By: REFERRED SELF Confirmed By:Ross Art
--- NOTE | 2021-05-06 16:53 | Discharge Summary ---
Date of Service May 06, 2021 Admission HPI Per Admitting Provider The patient is a 76-year-old female with a past tree including vitamin B12 deficiency, basal cell carcinoma, vitamin D deficiency, pro cyst. 5 glucose, hypothyroid is him high for. Thyroidism, distal anemia, chronic reflux fasciitis, anisocoria and Derrcik's disease. She presents with symptoms as noted above. Prior the past few days, she has had no significant symptoms like these. She does periodically have fatigue associated with her Derrick's disease, but not to the extent as noted over the past few days. Principal Diagnosis 1. Chest painACS ruled out. Discharge Exam General: Resting comfortably in her hospital bed. NAD. Neck: No JVD. Negative hepatojugular reflex Cardiac: RRR without M/G/R Lungs: CTA without W/R/R Abdomen: Normoactive X4. Soft and nontender in all quadrants. Extremities: No peripheral clubbing cyanosis or edema Neuro: A&O X4 cranial nerves II through XII are grossly intact no focal neuro deficits Skin: No obvious skin lesions or rashes Discharge Data Allergies Allergy/AdvReac Type Severity Reaction Status Date / Time No Known Allergies Allergy Verified 05/05/21 18:24 Consultations 05/05/21 21:16 ED Decision to Admit Stat 05/06/21 16:42 [facility] Routine Ordered Studies EKG on 05/05: Normal sinus rhythm. Rate 85 bpm. Normal axis. T wave inversion in the anterior septal leads however unchanged from October. Repeat EKG done on 05/06 showing no changes. Echocardiogram 05/06/2021: Left ventricular systolic function normal with an EF of 55 to 60%. No regional wall motion abnormality. Borderline concentric LV hypertrophy. No significant valve pathology. No change compared to prior done 2007 Hospital Course (1) Chest pain on exertion: * Mrs. Braswell is a 76-year-old white female with an underlying past medical history of Burdine's disease, hypothyroidism, diet-controlled HLD, and GERD. She presented to the ED complaining of exertional fatigue ongoing for 2 weeks that progressed into dyspnea on exertion and chest pressure only with exertion that was occurring all day on the day of presentation. Symptoms all resolved with rest but increasing with exertion. Did have associated diaphoresis. * Initial work-up in the ED was unremarkable. Her white blood cell count was slightly elevated at 12.5 but she does take chronic prednisone for her Burdine's disease * Troponin was negative. EKG was nonacute and unchanged from prior EKG. Was treated with aspirin and topical Nitropaste. * Decision made to keep patient in observation. * Her troponin was cycled and remained negative X3 sets * D-dimer missing from ED but obtained and negative * Echocardiogram obtained showing an EF of 55 to 60% with no regional wall motion abnormalities and no significant valvular disease * When seen [address] in observation, she was still awaiting bed availability * She has since been to and from the bathroom and denies any return of her symptoms * I have since reached out to cardiology who agrees that patient can be reasonably managed as an outpatient since lack of bed availability. She does not necessarily warrant an inpatient work-up at this time. * She has since ruled out for acute coronary syndrome. She is pain-free even with exertion today * Lipid panel drawn this morning for restratification and there are no recommendations for addition of statin therapy based on numbers unless she does have underlying coronary disease (which cardiology believes would be best to identify first with stress test) * Plan is to discharge to home today with continued medications as prior to hospitalization with the addition of 1 baby aspirin daily * Case navigate her will arrange an outpatient appointment for patient to see cardiology for formal cardiac work-up * Patient made aware and understands that she is to return to the ED should her symptoms return (2) DUKE (dyspnea on exertion): See above (3) Hypothyroidism: Continue levothyroxine 100 mcg every morning (4) Dyslipidemia: Reported as a history but no medications No indication for statin therapy at this time. To follow-up with cardiology who will address following stress test (5) Chronic reflux esophagitis: Continue esomeprazole/pantoprazole (6) Burdine's disease: Continue Florinef and hydrocortisone as prior to hospitalization (7) Vitamin B12 deficiency: Takes B12 1000 mcg IM monthly as an outpatient * Discharged home with addition of baby aspirin and follow-up with cardiology for formal cardiac work-up * Return to ED for new or worsening symptoms Total Time Total Time Spent Total Time Spent (In Minutes): 40 Discharge Plan Discharge Items Patient Disposition: Home - Self-Care Reason For Visit: CHEST PAIN, DUKE Discharge Diagnosis: Chest painacute coronary syndrome has ruled out Condition on Discharge: Good Activity: Per Instructions section Activity Comment: light activity until seen in FU by cardiology and you have further work-up Non-emergency contact: Primary Care Provider and Adult Family Home Program Manager Call non-emergency contact if: you have any medication questions and your symptoms worsen Follow-up/Referrals: Rafita Onofre III, MD [Primary Care Provider] - Diet: Heart Healthy Addtl Attending Provider Instructions: -You were hospitalized given chest pain and concern that this was cardiac in nature -You have ruled out for acute coronary syndrome (an active heart attack); however, this does not rule out underlying blockages in your coronary arteries that may be causing symptoms with exertion (stable angina) -You do need to have further cardiac work-up (nuclear stress test); however, this does not need to be done today. This can be done as an outpatient -I do advise addition of 1 baby aspirin (81mg) daily to help decrease risk of a cardiac event -A liaison from our facility will call you tomorrow with an appointment date and time for you to see Dr. Art (cardiology) -You need to return to the ED if your symptoms worsen or return -Although you did not have a heart attack, this does not mean that you do not have underlying blockages in your coronary vessels. This needs to be worked up further but as stated above, can be done as an outpatient Pending Studies at Discharge: No Stand-Alone Forms: My [facility] Medications and DC Order Prescriptions: New aspirin 81 mg Tablet,Delayed Release (Dr/Ec) 81 mg PO QAM Qty: 30 RF: 0 Continued cyanocobalamin (vitamin B-12) 1,000 mcg/mL solution 1,000 mcg IM MONTHLY RF: 0 alendronate 35 mg tablet 35 mg PO WK RF: 0 levothyroxine 100 mcg tablet 100 mcg PO QAM RF: 0 calcium carbonate 600 mg calcium (1,500 mg) tablet 1,500 mg PO QAM RF: 0 esomeprazole magnesium 40 mg capsule,delayed release(DR/EC) 40 mg PO QAM RF: 0 hydrocortisone 10 mg tablet 5 - 15 mg PO BID RF: 0 fludrocortisone 0.1 mg tablet 0.05 mg PO QAM RF: 0 cholecalciferol (vitamin D3) 25 mcg (1,000 unit) capsule 25 mcg PO QAM RF: 0 Discharge Orders: Discharge Order (Routine); Ordered 05/06/21 Ordered By: Vandana Armenta Admission Data Admit Date/Time: 05/05/21 21:51 Attending Provider: Jim Young Admit Provider: Jim Mancini Primary Care Provider: Rafita Onofre III Other Providers: Jim Mancini Other Interventions: Discharge Summary Assessment (RN) Last Done: 05/06/21 17:03 Supervising Physician Co-Signing Physician Notes Patient seen and examined on the day of discharge. I agree with the discharge summary by Vandana BALLESTEROS. I have reviewed the chart including labs, imaging and plans for discharge. patient was seen in the ED inpatient unit, no further chest pain ruled out for ACS with negative troponin x 3 echo with preserved EF and no wall motion changes will discharge to home, can have stress test as outpatient - Chest pain, resolved ACS ruled out, preserved echo, d dimer negative recommend PCP follow up and outpatient stress test C[place] [address] OBS Care - Discharge Patient Type Established Diagnoses Chest pain on exertion R07.9 DUKE (dyspnea on exertion) R06.00 Hypothyroidism E03.9 Dyslipidemia E78.5 Chronic reflux esophagitis K21.0 Derrick's disease E27.1 Vitamin B12 deficiency E53.8 Time Spent (min) 40
[2021-05-09] MEDS ORDERED: CYANOCOBALAMIN 1000 MCG/ML VIAL IM SCH (09:00)
== END 2021-05-06 17:10 | disposition home or self-care (01) ==
LOC: ED 15:06 → EDINP 15:06 → SUATTDRO 21:51 → EDINP 05-06 00:27

== ENCOUNTER 2022-03-10 10:13 | Inpatient (IN) ==
[2022-03-10] MEDS ORDERED: SODIUM CHLORIDE 0.9% 500 ML IV ONE (10:21)
--- NOTE | 2022-03-10 11:01 | XRay Report ---
XR chest 1V portable CLINICAL HISTORY: Chest Pain TECHNIQUE: Single frontal radiograph of the chest was obtained. Comparison: Comparison is made to chest radiograph 12/02/2019 FINDINGS: No lines and tubes are seen. The cardiomediastinal silhouette is normal. The lungs are clear. No evid ence of pleural effusion or pneumothorax. IMPRESSION: No acute chest disease. ACT 112: Negative or not required by law. Electronically signed by: Jim Jones M.D. 03/10/2022 10:59 AM
[2022-03-10 11:20] LABS: Basophils # (auto) 0.08 K/uL (0-0.2); Basophils % (auto) 0.7 %; Eosinophils # (auto) 0.07 K/uL (0-0.50); Eosinophils % (auto) 0.6 %; Hemoglobin 13.9 g/dl (12.0-16.0); Immature Granulocytes # (auto) 0.12 K/uL (0.00-0.02); Lymphocytes # (auto) 2.16 K/uL (1.2-3.4); Lymphocytes % (auto) 18.7 %; Mean Corpuscular Hemoglobin 29.8 pg (25.0-34.0); Mean Corpuscular Hgb Conc 33.9 g/dL (32.0-36.0); Mean Corpuscular Volume 87.8 fL (80.0-100.0); Mean Platelet Volume 9.5 fL (9.4-12.3); Monocytes # (auto) 1.15 K/uL (0.24-0.82); Monocytes % (auto) 9.9 %; Neutrophils # (auto) 7.98 K/uL (1.4-6.5); Neutrophils % (auto) 69.1 %; Platelet Count 367 K/uL (130-400); RDW Coefficient of Variation 13.2 % (11.5-14.5); RDW Standard Deviation 42.2 fL (36.4-46.3); Red Blood Count 4.67 M/uL (3.93-5.22); White Blood Count 11.56 K/ul (4.8-10.8)
[2022-03-10 11:42] LABS: Alanine Aminotransferase 34 U/L (7-52); Albumin Globulin Ratio 1.2 (0.9-2); Albumin Level 4.1 gm/dl (3.4-5.0); Alkaline Phosphatase 85 U/L (34-104); Anion Gap 6 (3-11); Aspartate Aminotransferase 36 U/L (13-39); BUN Creatinine Ratio 26.2 (10-20); Bilirubin,Total 0.4 mg/dl (0.2-1.0); Blood Urea Nitrogen 22 mg/dl (6-23); Calcium 9.6 mg/dl (8.5-10.1); Carbon Dioxide 26 mmol/L (21-32); Chloride 94 mmol/L (98-107); Est GFR (African American) 78.2 ml/min; Est GFR (Non-African American) 67.5 ml/min; Globulin 3.5 gm/dl (2.5-4.0); Glucose 109 mg/dl (70-99(Fasting)); Lipase 24 U/L (11-82); Magnesium 2.1 mg/dl (1.7-2.4); Phosphorus 3.1 mg/dl (2.5-4.9); Sodium 126 mmol/L (136-145); Total Protein 7.6 gm/dl (6.0-8.3)
[2022-03-10 11:46] LABS: Troponin I High Sensitivity 2.5 pg/ml (0-14)
[2022-03-10] MEDS ORDERED: ASPIRIN CHEW 324 MG PO STA (12:44)
--- NOTE | 2022-03-10 14:20 | History & Physical Report ---
Date of Service March 10, 2022 Assessment & Plan (1) Chest pressure: Plan: Her chest symptoms occur in conjunction with the dyspnea on exertion. Both her chest pressure and DUKE resolve with rest. None of her chest symptoms are pleuritic. Differential - ischemic/CAD vs primary pulmonary (ie - PE, bronchospasm, etc) vs other. There is no evidence of any infectious process. No evidence of pericarditis. Even if her chest pressure was from GERD or other GI-based issue a GI tract problem should not cause dyspnea. Plan - * serial troponins * telemetry * d-dimer with next blood draw and if + then CTA chest * check CRP to rule out an inflammatory process * NPO at midnight - stress test vs diagnostic cath - defer to cardiology * formal [facility] Cardiology consult requested with Dr Art * continue aspirin 81mg daily Lipids were checked in November 2021 thus defer on recheck at this time. Check HbA1C. (2) Dyspnea on exertion: Plan: She has a clear CXR and her O2 sats are wnl. [id number] she has prominent DUKE. See #1 above. Likely stress echo in am. Await d-dimer. Although she is hyponatremic - probably due to her Tolar's - this should not cause chest pressure or dyspnea. (3) Hyponatremia: Plan: Check serum osm, urine osm, and urine Na. TSH wnl. I suspect this is due to Tolar's and some element of volume depletion. Continue isotonic fluids. Serial BMPs. Plan stress dose steroids as below. (4) Derrick's disease: Plan: Long-standing diagnosis. Advise stress-dose steroids - give 50mg of IV hydrocortisone now, then 25mg TID IV thereafter for at least 24 hours. Cont florinef. (5) Chronic reflux esophagitis: Plan: Continue PPI. (6) Dyslipidemia: Plan: She is not on therapy for such on home. LDL in November was 90. HDL in November was 51. Defer on repeat profile at this time. (7) Hypothyroidism: Plan: TSH wnl. Cont synthroid. (8) Impaired fasting glucose: Plan: HbA1c in January 2021 was 6.1%. Repeat level while here. (9) DVT prophylaxis: Plan: defer on chemical means at this time unless she stays beyond tomorrow. low risk. History of Present Illness Chief Complaint: shortness of breath Primary Care Provider: EMELIA Rudd 77yo female with history of Tolar's disease and hypothyroidism presents with worsening shortness of breath. The dyspnea has been present for about 1 week. Symptoms are present with exertion only. No orthopnea or PND or symptoms at rest. Denies LE edema. Denies cough. The dyspnea on exertion resolves with resting for about 1-2 minutes. No fevers or chills. No recent travels or obvious sick contacts. Normal appetite. She has had chest "pressure" - a "heaviness" that "weighs down on the chest." The chest pressure typically occurs when she is short of breath. No true chest pain. The pressure sensation does not radiate to any other location. Has had normal liquid intake over the last few days. In April 2021 she underwent exercise stress echocardiogram and this was negative for ischemia. Over the last 48 hours - thinking she was dehydrated - she took 2 extra hydrocortisone tablets for 2 days but this did not lead to any change in her symptoms. Last episode of dyspnea was this am en route to her bathroom. No vomiting or diarrhea. No diaphoresis but did feel "hot" with a few episodes of her dyspnea. 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 Allergies Allergy/AdvReac Type Severity Reaction Status Date / Time No Known Allergies Allergy Verified 03/10/22 13:01 Home Medications Medication Instructions Recorded Confirmed Type levothyroxine 100 mcg tablet 100 mcg PO QAM 05/05/21 03/10/22 History aspirin 81 mg tablet,delayed 81 mg PO QAM #30 tabs 05/06/21 03/10/22 Rx release fludrocortisone 0.1 mg tablet 0.05 mg PO QAM #45 tabs 10/08/21 03/10/22 Rx esomeprazole magnesium 40 mg 40 mg PO QAM #90 caps 12/05/21 03/10/22 Rx capsule,delayed release alendronate 35 mg tablet 35 mg PO WK #14 tabs 01/21/22 03/10/22 Rx calcium carbonate 500 mg calcium 1,000 mg PO QAM 03/10/22 03/10/22 History (1,250 mg) tablet cholecalciferol (vitamin D3) 25 25 mcg PO QAM 03/10/22 03/10/22 History mcg (1,000 unit) capsule (Vitamin D3) cyanocobalamin (vitamin B-12) 1,000 mcg IM MONTHLY 03/10/22 03/10/22 History 1,000 mcg/mL injection solution hydrocortisone 10 mg tablet See Rx Instructions .Route .COMPLEX 03/10/22 03/10/22 History multivitamin 1 tab PO QAM 03/10/22 03/10/22 History Past Med/Surg History Medical History Addisons disease History of basal cell carcinoma Hypothyroidism Osteoporosis Seborrheic keratosis Thrombocytosis Surgical History History of colonoscopy History of tooth extraction S/P cholecystectomy (09/29/12) Family History Mother , age 96 Heart disease no VT per patient Hypertension Brother Heart disease CAD s/p stent Father , age 60 Leukemia Brother Aortic aneurysm Other No family history of adverse response to anesthesia Denies family history of Ovarian cancer Prostate cancer Diabetes Myocardial infarction Breast cancer Colorectal cancer Social History (Updated 03/10/22 @ 14:36 by Ladarius Garrett) Smoking Status: Never smoker Second Hand Exposure: Yes ( former smoker, nothing current); Hx Alcohol Use: No Hx Substance Use: No Preferred Language: [place] Islander Communication Ability: Effective Visual Impairment: No Limitations Hearing Ability: Normal Soil Technologist Required: No Beliefs That Will Affect Care: None marital status: Current Living Situation: Spouse current occupational status: retired 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 [employer] How many Children do You have: 2 How many Children do You have Comment: 1 son, 1 daughter Other Information That Helps Us Care for You: No Feels Safe at Home: Yes Safety Concerns: Feels Safe At This Time Childhood Exposure to Second-Hand Smoke: Yes Dental Care, Regularly: No Physical Activity Frequency: 3-4 Times per Week Seatbelt Use: always Sunscreen Use: Yes Assistive Devices: Glasses Review of Systems Review of Systems: gen - no fevers or chills; good appetite; no weight changes eyes - no visual changes HENT - no hearing changes; runny nose/sneezing last few days; no dysphagia neck - no pain CV - chest pressure but no "pain"; no palpitations; no PND, orthopnea or edema pulm - no cough; +DUKE but nothing at rest GI - no abd pain, vomiting, diarrhea, blood per rectum - no dysuria musculo - no arthralgias or effusions skin - no rash endo - no diabetes psych - no anxiety or depression neuro - no headaches Physical Exam Physical Exam: gen - NAD, pleasant, lying flat comfortably in bed eyes - PERRL HENT - TMs clear b/l, nose clear, mouth with slightly pasty MM neck - no JVD, no masses heart - RRR, s1 s2, 1/6 ELVIRA LSB lungs - CTA b/l, no rales abd - soft NT ND BS+ chest - no reproducible chest wall pain to palpation ext - no edema, pulses 2+ b/l neuro - strength 5/5 x 4 exts; DTRs 1-2+ b/l skin - no rash psych - a/o x 3 Results & Data Results & Data ([facility]) Vital Signs (Past 12 Hours) Vital Signs Temp Pulse Pulse Resp BP BP Pulse Ox 03/10/22 13:00 71 16 127/74 98 03/10/22 11:43 75 16 123/66 96 03/10/22 10:21 18 98 03/10/22 10:13 18 98 03/10/22 10:13 98 03/10/22 10:17 36.6 C 85 20 120/76 96 O2 Del Method 03/10/22 13:00 Room Air 03/10/22 11:43 Room Air 03/10/22 10:21 Room Air 03/10/22 10:13 Room Air 03/10/22 10:13 Room Air 03/10/22 10:17 Room Air Laboratory Results Laboratory Results - last 24 hr 03/10/22 03/10/22 03/10/22 11:00 11:00 11:00 WBC 11.56 H RBC 4.67 Hgb 13.9 Hct 41.0 MCV 87.8 MCH 29.8 MCHC 33.9 RDW Std Deviation 42.2 RDW Coeff of Chano 13.2 Plt Count 367 MPV 9.5 Immature Gran % (Auto) 1.0 Neut % (Auto) 69.1 Lymph % (Auto) 18.7 Carbon % (Auto) 9.9 Eos % (Auto) 0.6 Baso % (Auto) 0.7 Neut # (Auto) 7.98 H Lymph # (Auto) 2.16 Carbon # (Auto) 1.15 H Eos # (Auto) 0.07 Baso # (Auto) 0.08 Immature Gran # (Auto) 0.12 H Sodium 126 L Potassium 5.0 Chloride 94 L Carbon Dioxide 26 Anion Gap 6 BUN 22 Creatinine 0.84 Est Cr Clr Drug Dosing Not Reportable Est GFR ( Amer) 78.2 Est GFR (Non-Af Amer) 67.5 BUN/Creatinine Ratio 26.2 H Glucose 109 H Calcium 9.6 Phosphorus 3.1 Magnesium 2.1 Total Bilirubin 0.4 AST 36 ALT 34 Alkaline Phosphatase 85 Troponin I High Sens 2.5 Total Protein 7.6 Albumin 4.1 Globulin 3.5 Albumin/Globulin Ratio 1.2 Lipase 24 SARS-CoV-2, RNA, NAAT NEGATIVE Diagnostic Findings Chest X-Ray 03/10/22 10:21 XR chest 1V portable CLINICAL HISTORY: Chest Pain TECHNIQUE: Single frontal radiograph of the chest was obtained. Comparison: Comparison is made to chest radiograph 12/02/2019 FINDINGS: No lines and tubes are seen. The cardiomediastinal silhouette is normal. The lungs are clear. No evidence of pleural effusion or pneumothorax. IMPRESSION: No acute chest disease. ACT 112: Negative or not required by law. Electronically signed by: Jim Jones M.D. 03/10/2022 10:59 AM EKG - my reading - NSR, NS ST changes V2/V3, otherwise no ST changes Code Status & VTE Plan Code Status full code PG Care Time/CCT Total # of Minutes Spent Total Time Spent with Patient: Total time spent is greater than 50% in coordination of care (as documented) at patient's floor/unit and/or counseling patient: Coding Level of Care Code 89804 Initial Inpt Care Lvl 3 Diagnoses Chest pressure R07.89 Dyspnea on exertion R06.09 Hyponatremia E87.1 Tolar's disease E27.1 Chronic reflux esophagitis K21.0 Dyslipidemia E78.5 Hypothyroidism E03.9 Impaired fasting glucose R73.01 DVT prophylaxis Z29.9
[2022-03-10] MEDS ORDERED: HYDROCORTISONE SOD SUCCINATE 100 MG/2 ML VIAL IV STA (15:00)
[2022-03-10] MEDS ORDERED: ALUMINUM/MAGNESIUM SUSP 30 ML UDC PO PRN (15:53)
[2022-03-10] MEDS ORDERED: ACETAMINOPHEN 325 MG TAB PO PRN (15:53)
[2022-03-10] MEDS ORDERED: ONDANSETRON INJ 2 MG/ML 2 ML VIAL IV PRN (15:53)
[2022-03-10] MEDS ORDERED: MAGNESIUM HYDROXIDE SUSP 30 ML UDC PO PRN (15:53)
[2022-03-10] MEDS ORDERED: MoRPHine SULFATE 2 MG/ML CARP IV PRN (15:53)
[2022-03-10] MEDS ORDERED: NITROGLYCERIN SL 0.4 MG/TAB TAB SL PRN (15:53)
[2022-03-10] MEDS ORDERED: CALCIUM CARBONATE 500 MG CHEWABLE TAB PO PRN (16:11)
[2022-03-10] MEDS: SODIUM CHLORIDE 0.9% 1000ML 1,000 ML IV SCH (16:36)
--- NOTE | 2022-03-10 17:18 | Electrocardiogram Report ---
Test Reason : Blood Pressure : / mmHG Vent. Rate : 082 BPM Atrial Rate : 082 BPM P-R Int : 166 ms QRS Dur : 072 ms QT Int : 336 ms P-R-T Axes : 055 032 050 degrees QTc Int : 392 ms Normal sinus rhythm Normal ECG When compared with ECG of 01-DEC-2021 04:50, No significant change was found Confirmed by Ross Art ([id number]) on 03/10/2022 5:17:50 PM Referred By: Dannie Macias Confirmed By:Ross Art
[2022-03-10 17:53] LABS: D Dimer 330 ug/L FEU (0-500)
[2022-03-10 18:07] LABS: C Reactive Protein 1.26 mg/dl (0-0.5)
[2022-03-10 18:08] LABS: Troponin I High Sensitivity 3.4 pg/ml (0-14)
[2022-03-10] MEDS: HYDROCORTISONE SOD 25 MG in SYRINGE 0 ML IV SCH (20:48)
[2022-03-10 23:10] LABS: BUN Creatinine Ratio 17.5 (10-20); Calcium 9.1 mg/dl (8.5-10.1); Creatinine Clr Calc Pharmacy 53.1 ml/min; Est GFR (African American) 65.8 ml/min; Est GFR (Non-African American) 56.7 ml/min; Potassium 4.8 mmol/L (3.5-5.1)
[2022-03-11] MEDS: SODIUM CHLORIDE 0.9% 1000ML 1,000 ML IV SCH ×3 (00:30→20:46)
--- NOTE | 2022-03-11 01:39 | Emergency Department Note ---
Impression & Plan Exertional chest pain, DUKE (dyspnea on exertion), Hyponatremia ED Provider Note NAME: FAHEEM MURRAY AGE: 77 SEX: F ARRIVES VIA: Walk-In INFORMANT: Patient ED PROVIDER(S): Ollie Rodriguez MD CHIEF COMPLAINT: Chest pressure with exertion. PLAN: Disposition: Admit MEDICAL DECISION MAKING: The patient is a pleasant 77-year-old woman with a past medical history of [place]'s disease, chronic reflux esophagitis, hypothyroidism who presents to the emergency department accompanied by her for evaluation of substernal chest pressure that she reports is consistently with exertion over the past 2 weeks with associated dyspnea on exertion. She reports resolution of symptoms when she rests. She denies any prior cardiac history. She denies any recent cough, congestion, fevers, chills, GI or symptoms. She reports a mild sense of pain when walking into the emergency department this morning. However she denies any pain at this time. On arrival the patient is no acute distress, afebrile with stable vital signs. Exam is unremarkable. EKG without overt acute ischemia. CXR negative for acute cardiopulmonary process. WBC 11.5K, nonspecific. H/H, platelets wnl. Chemistry without acidosis. Sodium 126. LFTs without significant abnormality. High-sensitivity troponin 2.5, within normal limits. Lipase is within normal limits. TSH within normal limits. Covid- 19 RNA, NAAT negative. Given patient's exertional chest pressure/pain that is new over the past 2 weeks reasonable to admit the patient for further management. The patient agrees with this plan. Case was discussed with Dr. Garrett, [facility] hospitalist, who will evaluate the patie nt for admission. Triage Nursing notes reviewed and agree them. Prior medical records reviewed Vital Signs: reviewed and remarkable for no significant abnormalities Differential diagnosis: Cardiac ischemia, aortic dissection, pulmonary embolism, pneumothorax, pneumonia, pericarditis, myocarditis, esophageal rupture, GERD, cholecystitis, pancreatitis, musculoskeletal, as well as other pathologies. ER treatment provided: See below. Diagnostics interpreted by me: ECG: Normal sinus rhythm, 82 bpm, no ectopy, no overt ST elevation or depression , QTC 392, QRS 72. Cardiac Monitoring: An order for continuous cardiac monitoring was placed and demonstrated Normal sinus rhythm, 82 bpm, no ectopy,. Laboratory studies: See below Imaging studies: See below Consultation(s): Dr. Garrett, [facility] hospitalist, HPI: The patient is a pleasant 77-year-old woman with a past medical history of Derrick's disease, chronic reflux esophagitis, hypothyroidism who presents to the emergency department accompanied by her for evaluation of substernal chest pressure that she reports is consistently with exertion over the past 2 weeks with associated dyspnea on exertion. She reports resolution of symptoms when she rests. She denies any prior cardiac history. She denies any recent cough, congestion, fevers, chills, GI or symptoms. She reports a mild sense of pain when walking into the emergency department this morning. However she denies any pain at this time. ROS: See above HPI for pertinent positives & negatives. A total of 10 systems reviewed and were otherwise negative. VITALS:See Below PHYSICAL EXAMINATION: GENERAL: Awake, alert, well-appearing, in no distress HENT: Normocephalic, atraumatic. Oropharynx unremarkable. EYES: Normal conjunctiva. Sclera non-icteric. NECK: Supple. No nuchal rigidity. FROM. No JVD. RESPIRATORY: Clear to auscultation. CARDIAC: Regular rate, normal rhythm. Extremities warm and well perfused. Pulses equal. ABDOMEN: Soft, non-distended. No tenderness to palpation. No rebound or guarding. No masses. RECTAL: Deferred. MUSCULOSKELETAL: Chest examination reveals no tenderness. The back is symmetric al on inspection without obvious abnormality. There is no CVA tenderness to palpation. No joint edema. LOWER EXTREMITIES: Calves are equal size bilaterally and non-tender. No edema. No discoloration. NEURO: Normal sensorium. No sensory or motor deficits noted. SKIN: No rash or jaundice noted. Ollie Rodriguez MD Past Med/Surg History Medical History Addisons disease History of basal cell carcinoma Hypothyroidism Osteoporosis Seborrheic keratosis Thrombocytosis Surgical History History of colonoscopy History of tooth extraction S/P cholecystectomy (09/29/12) Family History Mother , age 96 Heart disease no MS per patient Hypertension Brother Heart disease CAD s/p stent Father , age 60 Leukemia Brother Aortic aneurysm Other No family history of adverse response to anesthesia Denies family history of Ovarian cancer Prostate cancer Diabetes Myocardial infarction Breast cancer Colorectal cancer Social History Smoking Status: Never smoker Second Hand Exposure: Yes ( former smoker, nothing current); Hx Alcohol Use: No Hx Substance Use: No Preferred Language: Italian Communication Ability: Effective Visual Impairment: No Limitations Hearing Ability: Normal Alloy Weigher Required: No Beliefs That Will Affect Care: None marital status: Current Living Situation: Spouse current occupational status: retired 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 [employer] How many Children do You have: 2 How many Children do You have Comment: 1 son, 1 daughter Other Information That Helps Us Care for You: No Feels Safe at Home: Yes Safety Concerns: Feels Safe At This Time Childhood Exposure to Second-Hand Smoke: Yes Dental Care, Regularly: No Physical Activity Frequency: 3-4 Times per Week Seatbelt Use: always Sunscreen Use: Yes Assistive Devices: Glasses Allergies Allergies Allergy/AdvReac Type Severity Reaction Status Date / Time No Known Allergies Allergy Verified 03/10/22 13:01 Home Meds Home Medications Medication Instructions Recorded Confirmed levothyroxine 100 mcg tablet 100 mcg PO QAM 05/05/21 03/10/22 calcium carbonate 500 mg calcium 1,000 mg PO QAM 03/10/22 03/10/22 (1,250 mg) tablet cholecalciferol (vitamin D3) 25 25 mcg PO QAM 03/10/22 03/10/22 mcg (1,000 unit) capsule (Vitamin D3) cyanocobalamin (vitamin B-12) 1,000 mcg IM MONTHLY 03/10/22 03/10/22 1,000 mcg/mL injection solution hydrocortisone 10 mg tablet See Rx Instructions .Route .COMPLEX 03/10/22 03/10/22 multivitamin 1 tab PO QAM 03/10/22 03/10/22 Previous Rx's Medication Instructions Recorded aspirin 81 mg tablet,delayed 81 mg PO QAM #30 tabs 05/06/21 release fludrocortisone 0.1 mg tablet 0.05 mg PO QAM #45 tabs 10/08/21 esomeprazole magnesium 40 mg 40 mg PO QAM #90 caps 12/05/21 capsule,delayed release alendronate 35 mg tablet 35 mg PO WK #14 tabs 01/21/22 Results & Data (ED) Vital Signs Vital Signs - 24 hr 03/10/22 10:17 03/10/22 10:13 03/10/22 10:13 Temperature 36.6 C Temperature Source Temporal Artery Scan Pulse Rate 85 Pulse Rate [Apical] Pulse Rhythm [Apical] Pulse Strength [Apical] Respiratory Rate 20 18 Respiratory Effort / Characteristics Non-Labored Spontaneous Non-Labored Respiratory Depth Normal Normal Respiratory Pattern Regular Regular Blood Pressure 120/76 Blood Pressure [Left Arm] Blood Pressure Mean 90 Blood Pressure Mean [Left Arm] Blood Pressure Position Sitting Blood Pressure Position [Left Arm] Pulse Oximetry 96 98 98 Oxygen Delivery Method Room Air Room Air Room Air Sepsis Recent Fever Within 48 Hours No Sepsis New/Unexplained Change in Mental Status No Sepsis Action Taken by Nursing No Action Required 03/10/22 10:21 03/10/22 11:43 03/10/22 13:00 Temperature Temperature Source Pulse Rate Pulse Rate [Apical] 75 71 Pulse Rhythm [Apical] Regular Regular Pulse Strength [Apical] Normal Respiratory Rate 18 16 16 Respiratory Effort / Characteristics Non-Labored Non-Labored Respiratory Depth Normal Normal Respiratory Pattern Regular Regular Blood Pressure Blood Pressure [Left Arm] 123/66 127/74 Blood Pressure Mean Blood Pressure Mean [Left Arm] 85 91 Blood Pressure Position Blood Pressure Position [Left Arm] Lying Lying Pulse Oximetry 98 96 98 Oxygen Delivery Method Room Air Room Air Room Air Sepsis Recent Fever Within 48 Hours Sepsis New/Unexplained Change in Mental Status Sepsis Action Taken by Nursing Laboratory Data Attestation: I reviewed the patient's lab results. Result diagrams: 03/10/22 11:00 03/10/22 22:18 Lab Results 03/10/22 03/10/22 03/10/22 Range/Units 11:00 11:00 11:00 WBC 11.56 H (4.8-10.8) K/ul RBC 4.67 (3.93-5.22) M/uL Hgb 13.9 (12.0-16.0) g/dl Hct 41.0 (34.1-44.9) % MCV 87.8 (80.0-100.0) fL MCH 29.8 (25.0-34.0) pg MCHC 33.9 (32.0-36.0) g/dL RDW Std Deviation 42.2 (36.4-46.3) fL RDW Coeff of Chano 13.2 (11.5-14.5) % Plt Count 367 (130-400) K/uL MPV 9.5 (9.4-12.3) fL Immature Gran % (Auto) 1.0 % Neut % (Auto) 69.1 % Lymph % (Auto) 18.7 % [place] % (Auto) 9.9 % Eos % (Auto) 0.6 % Baso % (Auto) 0.7 % Neut # (Auto) 7.98 H (1.4-6.5) K/uL Lymph # (Auto) 2.16 (1.2-3.4) K/uL [place] # (Auto) 1.15 H (0.24-0.82) K/uL Eos # (Auto) 0.07 (0-0.50) K/uL Baso # (Auto) 0.08 (0-0.2) K/uL Immature Gran # (Auto) 0.12 H (0.00-0.02) K/uL Sodium 126 L (136-145) mmol/L Potassium 5.0 (3.5-5.1) mmol/L Chloride 94 L (98-107) mmol/L Carbon Dioxide 26 (21-32) mmol/L Anion Gap 6 (3-11) BUN 22 (6-23) mg/dl Creatinine 0.84 (0.6-1.2) mg/dl Est Cr Clr Drug Dosing Not Reportable Est GFR ( Amer) 78.2 ml/min Est GFR (Non-Af Amer) 67.5 ml/min BUN/Creatinine Ratio 26.2 H (10-20) Glucose 109 H (70-99(Fasting)) mg/dl Calcium 9.6 (8.5-10.1) mg/dl Phosphorus 3.1 (2.5-4.9) mg/dl Magnesium 2.1 (1.7-2.4) mg/dl Total Bilirubin 0.4 (0.2-1.0) mg/dl AST 36 (13-39) U/L ALT 34 (7-52) U/L Alkaline Phosphatase 85 (34-104) U/L Troponin I High Sens 2.5 (0-14) pg/ml Total Protein 7.6 (6.0-8.3) gm/dl Albumin 4.1 (3.4-5.0) gm/dl Globulin 3.5 (2.5-4.0) gm/dl Albumin/Globulin Ratio 1.2 (0.9-2) Lipase 24 (11-82) U/L TSH (0.300-4.500) uIu/ml SARS-CoV-2, RNA, NAAT NEGATIVE (NEGATIVE) 03/10/22 Range/Units 11:00 WBC (4.8-10.8) K/ul RBC (3.93-5.22) M/uL Hgb (12.0-16.0) g/dl Hct (34.1-44.9) % MCV (80.0-100.0) fL MCH (25.0-34.0) pg MCHC (32.0-36.0) g/dL RDW Std Deviation (36.4-46.3) fL RDW Coeff of Chano (11.5-14.5) % Plt Count (130-400) K/uL MPV (9.4-12.3) fL Immature Gran % (Auto) % Neut % (Auto) % Lymph % (Auto) % [place] % (Auto) % Eos % (Auto) % Baso % (Auto) % Neut # (Auto) (1.4-6.5) K/uL Lymph # (Auto) (1.2-3.4) K/uL [place] # (Auto) (0.24-0.82) K/uL Eos # (Auto) (0-0.50) K/uL Baso # (Auto) (0-0.2) K/uL Immature Gran # (Auto) (0.00-0.02) K/uL Sodium (136-145) mmol/L Potassium (3.5-5.1) mmol/L Chloride (98-107) mmol/L Carbon Dioxide (21-32) mmol/L Anion Gap (3-11) BUN (6-23) mg/dl Creatinine (0.6-1.2) mg/dl Est Cr Clr Drug Dosing Est GFR ( Amer) ml/min Est GFR (Non-Af Amer) ml/min BUN/Creatinine Ratio (10-20) Glucose (70-99(Fasting)) mg/dl Calcium (8.5-10.1) mg/dl Phosphorus (2.5-4.9) mg/dl Magnesium (1.7-2.4) mg/dl Total Bilirubin (0.2-1.0) mg/dl AST (13-39) U/L ALT (7-52) U/L Alkaline Phosphatase (34-104) U/L Troponin I High Sens (0-14) pg/ml Total Protein (6.0-8.3) gm/dl Albumin (3.4-5.0) gm/dl Globulin (2.5-4.0) gm/dl Albumin/Globulin Ratio (0.9-2) Lipase (11-82) U/L TSH 2.014 (0.300-4.500) uIu/ml SARS-CoV-2, RNA, NAAT (NEGATIVE) Administered Medications Sodium Chloride (Nss 1000ml) 1,000 mls @ 125 mls/hr IV .Q8H RODRI Stop: 04/09/22 15:52 Last Admin: 03/11/22 00:30 Dose: 125 mls/hr Documented By: Infusion: 03/11/22 00:30 Dose: 125 mls/hr Documented By: Admin: 03/10/22 16:36 Dose: 125 mls/hr Documented By: MARNIE Hydrocortisone Sodium (Succinate 25 mg/ Syringe) 0.5 mls @ 4 mls/min IV TID RODRI Stop: 04/09/22 20:59 Last Admin: 03/10/22 20:48 Dose: 4 mls/min Documented By: Discontinued Medications Aspirin (Aspirin Chew 324 Mg) 324 mg PO NOW STA Stop: 03/10/22 12:45 Last Admin: 03/10/22 12:53 Dose: 243 mg Documented By: FLORENCIA Hydrocortisone Sodium Succinate (Hydrocortisone Sod Succinate 100 Mg/2 Ml Vial) 50 mg IV NOW STA Stop: 03/10/22 15:01 Last Admin: 03/10/22 15:38 Dose: 50 mg Documented By: STACEY Sodium Chloride (Nss) 500 mls @ 999 mls/hr IV .Q31M ONE Stop: 03/10/22 10:51 Last Infusion: 03/10/22 12:14 Dose: 0 mls/hr Documented By: Admin: 03/10/22 11:03 Dose: 999 mls/hr Documented By: SR Imaging Data Radiologist's Impression: Chest X-Ray 03/10/22 10:21 XR chest 1V portable CLINICAL HISTORY: Chest Pain TECHNIQUE: Single frontal radiograph of the chest was obtained. Comparison: Comparison is made to chest radiograph 12/02/2019 FINDINGS: No lines and tubes are seen. The cardiomediastinal silhouette is normal. The lungs are clear. No evidence of pleural effusion or pneumothorax. IMPRESSION: No acute chest disease. ACT 112: Negative or not required by law. Electronically signed by: Jim Jones M.D. 03/10/2022 10:59 AM Discharge Plan Visit Data Chief Complaint: Chest Pain Stated Complaint: CHEST PAIN/PRESSURE, SOB ED Provider: Ollie Rodriguez Discharge Problem: Exertional chest pain, DUKE (dyspnea on exertion), Hyponatremia Patient Disposition: Admitted As Inpatient Discharge Instructions Interventions: ED Discharge Assessment Last Done: 03/10/22 14:50
[2022-03-11] MEDS: LEVOTHYROXINE SODIUM 100 MCG TABLET PO SCH (05:45)
[2022-03-11 06:50] LABS: Estimated Average Glucose 134 mg/dl; Hemoglobin A1C 6.3 % (4.5-5.6)
[2022-03-11 06:53] LABS: BUN Creatinine Ratio 21.8 (10-20); Creatinine Clr Calc Pharmacy 65.2 ml/min; Est GFR (African American) 85.6 ml/min; Est GFR (Non-African American) 73.8 ml/min; Potassium 4.4 mmol/L (3.5-5.1)
[2022-03-11] MEDS: MULTIVITAMIN TAB PO SCH (07:55)
[2022-03-11] MEDS: ASPIRIN 81 MG ECTAB PO SCH (07:55)
[2022-03-11] MEDS: FLUDROCORTISONE ACETATE 0.1 MG TAB PO SCH (07:55)
[2022-03-11] MEDS: PANTOprazole 40 MG TAB PO SCH (07:56)
[2022-03-11] MEDS: CHOLECALCIFEROL 1,000 UNITS 25 MCG TAB PO SCH (07:56)
[2022-03-11] MEDS: HYDROCORTISONE SOD 25 MG in SYRINGE 0 ML IV SCH ×3 (07:56→20:45)
[2022-03-11] MEDS ORDERED: HEPARIN (PORCINE) 1000 UNIT/ML 10 ML (CATH LAB USE ONLY) ONE (11:06)
[2022-03-11] MEDS ORDERED: MIDAZOLAM HCL 1 MG/ML 2ML VIAL ONE (11:06)
[2022-03-11] MEDS ORDERED: fentaNYL citrate 100 MCG/2 ML VIAL ONE (11:06)
[2022-03-11] MEDS ORDERED: niCARdipine HCL INJ 2.5 MG/ML 10 ML AMP ONE (11:06)
[2022-03-11] MEDS ORDERED: NITROGLYCERIN/D5W 100MCG/ML 20ML SYR ONE (11:07)
--- NOTE | 2022-03-11 11:20 | Hospitalist Progress Note ---
Date of Service March 11, 2022 Assessment & Plan (1) Chest pressure: Plan: Resolved. Negative troponins. Negative stress echo today, and negative stress echo in 04/2021. EKGs without ischemic changes. Tele wnl. Appreciate cardiology consult - cardiopulmonary symptoms felt not to be cardiac in origin. Etiology of chest pressure? PE? Bronchospasm? GI? other? see below #2. (2) Dyspnea on exertion: Plan: Present x 1 week pre-admission. Had [facility] during the stress test today. CXR wnl, O2 sats wnl, normal lung exam by auscultation. Stress echo negative. Etiology? Will obtain CTA chest - r/o PE, pulm edema (doubt), pneumonitis/pneumonia, etc. If CTA chest is negative consider pulmonary consultation. (3) Hyponatremia: Plan: Improving with isotonic fluids. 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 Continue isotonic fluids. Continue stress dose steroids as below. BMP am. Can lower fluid rate to 80cc/hr. (4) [place]'s disease: Plan: Long-standing diagnosis. Cont stress-dose steroids with hydrocortisone 25mg IV TID today, and then wean to usual dosing starting tomorrow. Cont florinef. Cont IV fluids. (5) Chronic reflux esophagitis: Plan: Continue PPI. Cause of chest pressure? (6) Dyslipidemia: Plan: She is not on therapy for such on home. LDL in November was 90. HDL in November was 51. Defer on repeat profile at this time. (7) Hypothyroidism: Plan: TSH wnl. Cont synthroid. (8) Impaired fasting glucose: Plan: HbA1c in January 2021 was 6.1%. Repeat level 6.3%. Stable pre-DM. (9) DVT prophylaxis: Plan: start lovenox 40mg daily if CTA chest is negative for PE Plan will update family once CTA chest has returned Admission and Anticipated Discharge Date Admission Date: March 10, 2022 Subjective patient has had no further episodes of chest pressure she underwent stress echo this am did well - no chest pain/chest pressure/chest tightness during the study HOWEVER, did have dyspnea during the study the dyspnea was perhaps not as severe as the dyspnea that occurred at home leading up to admission, but still present no cough otherwise feels good tele overnight - NSR Review of Systems Review of Systems: gen - no fevers, no chills cv - no chest pain or pressure; no orthopnea pulm - no cough; no dyspnea at rest; no PND GI - no abd pain, nausea, emesis Physical Exam Physical Exam: gen - NAD, looks good today neck - no JVD mouth - MMM heart - RRR, s1 s2, 1/6 ELVIRA LLSB lungs - CTA b/l abd - soft NT ND BS+ ext - no edema, pulses 2+ b/l psych - a/o x 3 Results & Data Results & Data ([facility]) Vital Signs (Past 12 Hours) Vital Signs Temp Pulse Pulse Pulse Resp BP Pulse Ox 03/11/22 07:37 36.5 C 68 16 108/65 97 03/11/22 06:16 73 03/11/22 02:54 36.5 C 70 18 100/63 96 O2 Del Method 03/11/22 07:37 Room Air 03/11/22 06:16 03/11/22 02:54 Room Air Laboratory Results Laboratory Results - last 24 hr 03/10/22 03/10/22 03/10/22 11:00 11:00 11:00 WBC 11.56 H RBC 4.67 Hgb 13.9 Hct 41.0 MCV 87.8 MCH 29.8 MCHC 33.9 RDW Std Deviation 42.2 RDW Coeff of [place] 13.2 Plt Count 367 MPV 9.5 Immature Gran % (Auto) 1.0 Neut % (Auto) 69.1 Lymph % (Auto) 18.7 [place] % (Auto) 9.9 Eos % (Auto) 0.6 Baso % (Auto) 0.7 Neut # (Auto) 7.98 H Lymph # (Auto) 2.16 [place]verse # (Auto) 1.15 H Eos # (Auto) 0.07 Baso # (Auto) 0.08 Immature Gran # (Auto) 0.12 H D-Dimer Sodium 126 L Potassium 5.0 Chloride 94 L Carbon Dioxide 26 Anion Gap 6 BUN 22 Creatinine 0.84 Est Cr Clr Drug Dosing Not Reportable Est GFR ( Amer) 78.2 Est GFR (Non-Af Amer) 67.5 BUN/Creatinine Ratio 26.2 H Glucose 109 H Estimat Average Glucose Hemoglobin A1c Osmolality Calcium 9.6 Phosphorus 3.1 Magnesium 2.1 Total Bilirubin 0.4 AST 36 ALT 34 Alkaline Phosphatase 85 Troponin I High Sens 2.5 C-Reactive Protein Total Protein 7.6 Albumin 4.1 Globulin 3.5 Albumin/Globulin Ratio 1.2 Lipase 24 TSH Urine Osmolality Ur Random Sodium SARS-CoV-2, RNA, NAAT NEGATIVE 03/10/22 03/10/22 03/10/22 11:00 11:00 17:23 WBC RBC Hgb Hct MCV MCH MCHC RDW Std Deviation RDW Coeff of [place] Plt Count MPV Immature Gran % (Auto) Neut % (Auto) Lymph % (Auto) [place] % (Auto) Eos % (Auto) Baso % (Auto) Neut # (Auto) Lymph # (Auto) [place]verse # (Auto) Eos # (Auto) Baso # (Auto) Immature Gran # (Auto) D-Dimer 330 Sodium Potassium Chloride Carbon Dioxide Anion Gap BUN Creatinine Est Cr Clr Drug Dosing Est GFR ( Amer) Est GFR (Non-Af Amer) BUN/Creatinine Ratio Glucose Estimat Average Glucose 134 Hemoglobin A1c 6.3 H Osmolality Calcium Phosphorus Magnesium Total Bilirubin AST ALT Alkaline Phosphatase Troponin I High Sens C-Reactive Protein Total Protein Albumin Globulin Albumin/Globulin Ratio Lipase TSH 2.014 Urine Osmolality Ur Random Sodium SARS-CoV-2, RNA, NAAT 03/10/22 03/10/22 03/10/22 17:23 17:23 18:40 WBC RBC Hgb Hct MCV MCH MCHC RDW Std Deviation RDW Coeff of [place] Plt Count MPV Immature Gran % (Auto) Neut % (Auto) Lymph % (Auto) [place] % (Auto) Eos % (Auto) Baso % (Auto) Neut # (Auto) Lymph # (Auto) [place] # (Auto) Eos # (Auto) Baso # (Auto) Immature Gran # (Auto) D-Dimer Sodium Potassium Chloride Carbon Dioxide Anion Gap BUN Creatinine Est Cr Clr Drug Dosing Est GFR ( Amer) Est GFR (Non-Af Amer) BUN/Creatinine Ratio Glucose Estimat Average Glucose Hemoglobin A1c Osmolality 275 L Calcium Phosphorus Magnesium Total Bilirubin AST ALT Alkaline Phosphatase Troponin I High Sens 3.4 C-Reactive Protein 1.26 H Total Protein Albumin Globulin Albumin/Globulin Ratio Lipase TSH Urine Osmolality 324 L Ur Random Sodium SARS-CoV-2, RNA, NAAT 03/10/22 03/10/22 03/11/22 18:40 22:18 06:03 WBC RBC Hgb Hct MCV MCH MCHC RDW Std Deviation RDW Coeff of [place] Plt Count MPV Immature Gran % (Auto) Neut % (Auto) Lymph % (Auto) [place] % (Auto) Eos % (Auto) Baso % (Auto) Neut # (Auto) Lymph # (Auto) [place] # (Auto) Eos # (Auto) Baso # (Auto) Immature Gran # (Auto) D-Dimer Sodium 129 L 131 L Potassium 4.8 4.4 Chloride 98 100 Carbon Dioxide 26 25 Anion Gap 5 6 BUN 17 17 Creatinine 0.97 0.78 Est Cr Clr Drug Dosing 53.1 65.2 Est GFR ( Amer) 65.8 85.6 Est GFR (Non-Af Amer) 56.7 73.8 BUN/Creatinine Ratio 17.5 21.8 H Glucose 137 H 93 Estimat Average Glucose Hemoglobin A1c Osmolality Calcium 9.1 9.0 Phosphorus Magnesium Total Bilirubin AST ALT Alkaline Phosphatase Troponin I High Sens C-Reactive Protein Total Protein Albumin Globulin Albumin/Globulin Ratio Lipase TSH Urine Osmolality Ur Random Sodium 58 SARS-CoV-2, RNA, NAAT Diagnostic Findings stress echo - negative for ischemia at 84% of MPHR normal LV function normal valve function grade 1 diastolic dysfunction PG Care Time/CCT Total # of Minutes Spent Total Time Spent with Patient: Total time spent is greater than 50% in coordination of care (as documented) at patient's floor/unit and/or counseling patient: Coding Level of Care Code 40411 Subseq Hosp Care Lvl 2 Diagnoses Chest pressure R07.89 Dyspnea on exertion R06.09 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
--- NOTE | 2022-03-11 13:27 | Cardiology Consultation ---
Date of Consultation March 11, 2022 Assessment & Plan (1) Dyspnea on exertion: -normal stress echocardiogram this morning as described above. -doubt that her exertional dyspnea related to a cardiac etiology. -could consider an outpatient pulmonary consultation. -stable for hospital discharge from a cardiac perspective. History of Present Illness Attending Physician: Ladarius Garrett History of Present Illness Mrs. Braswell is a 77-year-old female admitted yesterday because of exertional dyspnea. This consultation ordered to assist in her management. Of note, the patient typically follows with Dr. Higginbotham in the outpatient setting. The patient was in usual state of health until approximately 1 week prior to presentation. She began to note significant exertional dyspnea which was much worse than her typical baseline. She did not experience concurrent chest discomfort, nausea, vomiting, or diaphoresis. For this reason, patient presented to the emergency room for further care. The patient has been active on a daily basis caring for her home. She also performs water walking for 60 minutes 3 days each week. She seems to do well during that physical activity. The patient had a normal stress echocardiogram at 7 METS and a peak heart rate of 84% maximum predicted. Results of that evaluation were personally reviewed and discussed with the patient in detail. Currently, patient is resting comfortably in bed without complaints. Past medical and surgical history 1. Hypercholesterolemia 2. Hyperglycemia 3. GERD 4. Hypothyroidism 5. [place]'s disease 6. Hyperparathyroidism 7. Cholecystectomy-September 2012 Social history and lives with her No tobacco alcohol Family history Mother at 96 from CHF Father at 60 from leukemia A brother had stents placed while in his mid 50s. Review of systems A 10 review systems was negative except for that described above. Allergies Allergy/AdvReac Type Severity Reaction Status Date / Time No Known Allergies Allergy Verified 03/10/22 13:01 Home Medications Medication Instructions Recorded Confirmed Type levothyroxine 100 mcg tablet 100 mcg PO QAM 05/05/21 03/10/22 History aspirin 81 mg tablet,delayed 81 mg PO QAM #30 tabs 05/06/21 03/10/22 Rx release fludrocortisone 0.1 mg tablet 0.05 mg PO QAM #45 tabs 10/08/21 03/10/22 Rx esomeprazole magnesium 40 mg 40 mg PO QAM #90 caps 12/05/21 03/10/22 Rx capsule,delayed release alendronate 35 mg tablet 35 mg PO WK #14 tabs 01/21/22 03/10/22 Rx calcium carbonate 500 mg calcium 1,000 mg PO QAM 03/10/22 03/10/22 History (1,250 mg) tablet cholecalciferol (vitamin D3) 25 25 mcg PO QAM 03/10/22 03/10/22 History mcg (1,000 unit) capsule (Vitamin D3) cyanocobalamin (vitamin B-12) 1,000 mcg IM MONTHLY 03/10/22 03/10/22 History 1,000 mcg/mL injection solution hydrocortisone 10 mg tablet See Rx Instructions .Route .COMPLEX 03/10/22 03/10/22 History multivitamin 1 tab PO QAM 03/10/22 03/10/22 History Patient History Medical History Addisons disease History of basal cell carcinoma Hypothyroidism Osteoporosis Seborrheic keratosis Thrombocytosis Surgical History History of colonoscopy History of tooth extraction S/P cholecystectomy (09/29/12) Family History Mother , age 96 [address] per patient Hypertension Brother Heart disease CAD s/p stent Father , age 60 Leukemia Brother Aortic aneurysm Other No family history of adverse response to anesthesia Denies family history of Ovarian cancer Prostate cancer Diabetes Myocardial infarction Breast cancer Colorectal cancer Social History Smoking Status: Never smoker Second Hand Exposure: Yes ( former smoker, nothing current); Hx Alcohol Use: No Hx Substance Use: No Preferred Language: [place]erratian Communication Ability: Effective Visual Impairment: No Limitations Hearing Ability: Normal Plant Engineering Manager Required: No Beliefs That Will Affect Care: None marital status: Current Living Situation: Spouse current occupational status: retired 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 HEENT exam is negative. Neck is supple with full carotid upstrokes. There are no carotid bruits. Jugular venous pressure is flat at 90. There is no thyromegaly. Cardiovascular exam reveals a regular rhythm with a normal S1 and S2. No S3, S4, or murmurs are noted. Lungs are clear without rales, rhonchi, or wheezes. Abdomen is soft and nontender without bruits. Extremities reveal intact radial artery and posterior tibial pulses bilaterally. There is no peripheral edema. Results & Data ([facility]) Vital Signs (Past 12 Hours) Vital Signs Temp Pulse Pulse Pulse Resp BP Pulse Ox 03/11/22 07:37 36.5 C 68 16 108/65 97 03/11/22 06:16 73 03/11/22 02:54 36.5 C 70 18 100/63 96 O2 Del Method 03/11/22 07:37 Room Air 03/11/22 06:16 03/11/22 02:54 Room Air Laboratory Results CBC notes hemoglobin 13.9, hematocrit 41.0, white count 11.56, platelet count 3 and 67,000. Electrolytes note a sodium of 131, potassium 4.4, chloride 100, bicarb 25, BUN 17, creatinine 0.78, glucose of 93. High sensitivity troponin is 2.5 with a follow-up value of 3.4. TSH is normal at 2.01. Diagnostic Findings EKG notes normal sinus rhythm without abnormalities. Chest x-ray shows no acute disease. PG Care Time/CCT Total # of Minutes Spent Total Time Spent with Patient: Total time spent is greater than 50% in coordination of care (as documented) at patient's floor/unit and/or counseling patient: Coding Level of Care Code INT OBSERVATION CARE 70M LVL 3 Diagnoses Dyspnea on exertion R06.09
--- NOTE | 2022-03-11 16:18 | XCELERA ---
[id number]
[2022-03-11] MEDS ORDERED: Nursing to Pharmacy Communication SCH (16:30)
--- NOTE | 2022-03-11 16:46 | Electrocardiogram Report ---
Test Reason : Blood Pressure : / mmHG Vent. Rate : 070 BPM Atrial Rate : 070 BPM P-R Int : 178 ms QRS Dur : 064 ms QT Int : 382 ms P-R-T Axes : 055 033 038 degrees QTc Int : 412 ms Normal sinus rhythm Normal ECG When compared with ECG of 10-MAR-2022 10:25, No significant change was found Confirmed by Ross Art ([id number]) on 03/11/2022 4:46:15 PM Referred By: Dannie Macias Confirmed By:Ross Art
[2022-03-11] MEDS ORDERED: OPTIRAY 320 125ml IV ONE (20:09)
--- NOTE | 2022-03-11 20:29 | CT Scan Report ---
CT ANGIOGRAM OF THE CHEST CLINICAL HISTORY: Dyspnea. Chest pressure. COMPARISON STUDY: Chest x-ray dated 03/10/2022. TECHNIQUE: Following the IV administration of 120 cc of Optiray 320, CT angiogram of the chest was pe rformed from the upper abdomen to the thoracic inlet utilizing the pulmonary embolus protocol. Images are reviewed in the axial, sagittal, and coronal planes. 3-D MIPS images are created and assessed. I V contrast was administered without complication. A dose lowering technique was utilized adhering to the principles of ALARA. CT DOSE: 444.99 mGy.cm FINDINGS: Thyroid: Atrophic and heterogeneous. Thoracic aorta: The thoracic aorta is normal in caliber and demonstrates 4-vessel various arch anatom y. No dissection is seen. Pulmonary vasculature: The pulmonary trunk is normal in caliber. There are no filling defects identif ied in main, lobar, or segmental pulmonary branches to suggest pulmonary embolus. Heart: The heart is normal in size and without pericardial effusion. Lungs and pleural spaces: The lungs and pleural spaces are clear. Mediastinum: There is no mediastinal lymphadenopathy. Bijal: Clear. Axillae: There is no axillary lymphadenopathy. Upper abdomen: There is a small hiatal hernia. The liver is steatotic. Cholecystectomy clips are note d. Skeletal structures: The skeletal structures are osteopenic. Mild degenerative change and hyperkyphos is is noted in the thoracic spine. No lytic or blastic bony lesions are seen. IMPRESSION: 1. There is no evidence of pulmonary embolus in the main, lobar, or segmental pulmonary arteries. 2. There is no airspace consolidation or pleural effusion. 3. Hepatic steatosis. ACT 112: Negative or not required by law. Electronically signed by: Hay Santoro M.D. 03/11/2022 8:26 PM
[2022-03-12] MEDS: LEVOTHYROXINE SODIUM 100 MCG TABLET PO SCH (06:12)
[2022-03-12 06:43] LABS: Basophils # (auto) 0.06 K/uL (0-0.2); Basophils % (auto) 0.5 %; Eosinophils # (auto) 0.06 K/uL (0-0.50); Eosinophils % (auto) 0.5 %; Hematocrit (blood only) 34.1 % (34.1-44.9); Hemoglobin 11.4 g/dl (12.0-16.0); Immature Granulocytes # (auto) 0.09 K/uL (0.00-0.02); Immature Granulocytes % (auto) 0.7 %; Lymphocytes # (auto) 3.18 K/uL (1.2-3.4); Lymphocytes % (auto) 24.6 %; Mean Corpuscular Hemoglobin 29.9 pg (25.0-34.0); Mean Corpuscular Hgb Conc 33.4 g/dL (32.0-36.0); Mean Corpuscular Volume 89.5 fL (80.0-100.0); Mean Platelet Volume 9.7 fL (9.4-12.3); Monocytes # (auto) 1.07 K/uL (0.24-0.82); Monocytes % (auto) 8.3 %; Neutrophils # (auto) 8.48 K/uL (1.4-6.5); Neutrophils % (auto) 65.4 %; Platelet Count 311 K/uL (130-400); RDW Coefficient of Variation 13.5 % (11.5-14.5); RDW Standard Deviation 44.1 fL (36.4-46.3); Red Blood Count 3.81 M/uL (3.93-5.22); White Blood Count 12.94 K/ul (4.8-10.8)
[2022-03-12 07:07] LABS: BUN Creatinine Ratio 24.3 (10-20); Calcium 7.8 mg/dl (8.5-10.1); Creatinine Clr Calc Pharmacy 72.5 ml/min; Est GFR (African American) 97.5 ml/min; Est GFR (Non-African American) 84.2 ml/min
[2022-03-12] MEDS: FLUDROCORTISONE ACETATE 0.1 MG TAB PO SCH (08:00)
[2022-03-12] MEDS: ASPIRIN 81 MG ECTAB PO SCH (08:01)
[2022-03-12] MEDS: MULTIVITAMIN TAB PO SCH (08:01)
[2022-03-12] MEDS: CHOLECALCIFEROL 1,000 UNITS 25 MCG TAB PO SCH (08:01)
[2022-03-12] MEDS: PANTOprazole 40 MG TAB PO SCH (08:01)
[2022-03-12] MEDS: HYDROCORTISONE SOD 25 MG in SYRINGE 0 ML IV SCH (08:01)
--- NOTE | 2022-03-12 12:18 | Discharge Summary ---
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 The dyspnea has been present for about 1 week. Symptoms are present with exertion only. No orthopnea or PND or symptoms at rest. Denies LE edema. Denies cough. The dyspnea on exertion resolves with resting for about 1-2 minutes. No fevers or chills. No recent travels or obvious sick contacts. Normal appetite. She has had chest "pressure" - a "heaviness" that "weighs down on the chest." The chest pressure typically occurs when she is short of breath. No true chest pain. The pressure sensation does not radiate to any other location. Has had normal liquid intake over the last few days. In April 2021 she underwent exercise stress echocardiogram and this was negative for ischemia. Over the last 48 hours - thinking she was dehydrated - she took 2 extra hydrocortisone tablets for 2 days but this did not lead to any change in her symptoms. Last episode of dyspnea was this am en route to her bathroom. No vomiting or diarrhea. No diaphoresis but did feel "hot" with a few episodes of her dyspnea. 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 Discharge Exam gen - NAD, looks good today neck - no JVD mouth - MMM heart - RRR, s1 s2, 1/6 ELVIRA LLSB lungs - CTA b/l abd - soft NT ND BS+ ext - no edema, pulses 2+ b/l psych - a/o x 3 Discharge Data Allergies Allergy/AdvReac Type Severity Reaction Status Date / Time No Known Allergies Allergy Verified 03/10/22 13:01 Consultations 03/10/22 13:50 ED Decision to Admit Stat 03/10/22 15:53 Consult Cardiology Routine Procedures Performed Operation Date: 03/11/22 11:30 <No data on this case meets the specified criteria> Ordered Studies 03/11/22 11:12 CL Cath Imgs for PACS use only Routine 03/11/22 11:19 CT angio chest PE protocol Routine Hospital Course (1) Chest pressure: Resolved. Negative troponins. Negative stress echo today, and negative stress echo in 04/2021. EKGs without ischemic changes. Tele wnl. Appreciate cardiology consult - cardiopulmonary symptoms felt not to be cardiac in origin. Etiology of chest pressure? PE? Bronchospasm? GI? other? see below #2. (2) Dyspnea on exertion: Present x 1 week pre-admission. Had [facility] during the stress test today. CXR wnl, O2 sats wnl, normal lung exam by auscultation. Stress echo negative. Etiology? Will obtain CTA chest - r/o PE, pulm edema (doubt), pneumonitis/pneumonia, etc. If CTA chest is negative consider pulmonary consultation. (3) Hyponatremia: Improving with isotonic fluids. I suspect this is due to Barton's. Continue isotonic fluids. Continue stress dose steroids as below. BMP am. Can lower fluid rate to 80cc/hr. (4) Barton's disease: Long-standing diagnosis. Cont stress-dose steroids with hydrocortisone 25mg IV TID today, and then wean to usual dosing starting tomorrow. Cont florinef. Cont IV fluids. (5) Chronic reflux esophagitis: Continue PPI. Cause of chest pressure? (6) Dyslipidemia: She is not on therapy for such on home. LDL in November was 90. HDL in November was 51. Defer on repeat profile at this time. (7) Hypothyroidism: TSH wnl. Cont synthroid. (8) Impaired fasting glucose: HbA1c in January 2021 was 6.1%. Repeat level 6.3%. Stable pre-DM. (9) DVT prophylaxis: start lovenox 40mg daily if CTA chest is negative for PE Plan will update family once CTA chest has returned Discharge Plan Discharge Items Patient Disposition: Home - Self-Care Reason For Visit: CHEST PAIN, HYPONATREMIA Discharge Diagnosis: 1. chest pressure, shortness of breath - improved/resolved. Negative stress test. Normal echocardiogram. Normal CT scan of the chest (no blood clots of the lungs, no pneumonia or fluid, etc). See discussion below. 2. hyponatremia (low sodium) - resolved. Due to dehydration / Barton's Disease. Activity: Resume your previous activity Exercise/Sports: Gradually increase as tolerated Driving/Machine Use: No limitations Non-emergency contact: Primary Care Provider Call non-emergency contact if: you have any medication questions, your symptoms worsen and you have a fever Follow-up/Referrals: Dannie Macias CRNP [Primary Care Provider] - 03/17/22 2:00 pm Jyoti Herbert MD [Physician] - 04/10/22 11:00 am Diet: Carb Consistent or DM2 Addtl Attending Provider Instructions: Mrs Braswell, Neil were hospitalized for episodes of shortness of breath associated with chest pressure. These symptoms had been present for about 1 week. When you arrived your sodium level was low likely due to dehydration in the setting of Derrick's disease. We did not find evidence of a heart attack, pneumonia, etc. On 03/11 we repeated a stress test and this was normal/negative. The normal stress test suggests that your chest pressure is not from blocked arteries of the heart. There can be times when a stress test is falsely normal, however, and the chances of that are <10% or so. Also on 03/[address] scan of the lungs. This did NOT show blood clots, pneumonia, fluid, tumors or any other abnormalities. Your sodium level improved with "stress-dose" steroids and IV fluids. Your sodium level today is now normal at 135. The exact cause of your shortness of breath/chest pressure is uncertain. Typically dehydration or low sodium does not cause chest pain or pressure. It can make you tired/weak/fatigued, but normally does not cause breathing difficulty or chest symptoms. Recommendations - 1. hydrocortisone schedule - * TONIGHT please take 20mg by mouth * TOMORROW morning please take 20mg by mouth * TOMORROW evening please take 10mg by mouth * on 03/14 - Wednesday - resume your usual regimen of 15mg in the morning and 5mg in the evening 2. please drink some extra fluids today and tomorrow. 3. we have set you up with a faceter (lung doctor) to pursue additional testing for your breathing (PFTs, etc). 4. finally, if the chest pressure or chest pain were to return, you would need to see [facility] for consideration of a "heart catheterization" which is the most definitive test to have to rule out blocked coronary arteries. Again, however, all of the testing done in 04/2021 and during this hospitalization would suggest that your symptoms are from something else other than the heart. 5. as we talked about - if you have any minor illness or are spending significant amounts of time outside in the heat - please be sure to take "extra" hydrocortisone (as previously directed) and increase your fluid intake. Follow-up - see separate section Return to [facility] if - * you have fevers over 100 degrees * you have chest pains or pressure * you have severe shortness of breath * any other concerns It was my pleasure caring for you at [facility]! -Dr Garrett Pending Studies at Discharge: No Stand-Alone Forms: [facility], Smoking Cessation Medications and DC Order Prescriptions: Continued fludrocortisone 0.1 mg tablet 0.05 mg PO QAM Qty: 45 1RF alendronate 35 mg tablet 35 mg PO WK Qty: 14 3RF Rx Instructions: wednesday esomeprazole magnesium 40 mg capsule,delayed release(DR/EC) 40 mg PO QAM Qty: 90 3RF calcium carbonate [Calcium 500] 500 mg calcium (1,250 mg) Tablet 1,000 mg PO QAM multivitamin Tablet 1 tab PO QAM cyanocobalamin (vitamin B-12) [Vitamin B-12] 1,000 mcg/mL Solution 1,000 mcg IM MONTHLY cholecalciferol (vitamin D3) [Vitamin D3] 25 mcg (1,000 unit) Capsule 25 mcg PO QAM hydrocortisone 10 mg tablet See Rx Instructions .ROUTE .COMPLEX Rx Instructions: Take 1 1/2 tablets in the morning and 1/2 tablet in the evening. 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
--- NOTE | 2022-03-12 22:53 | Electrocardiogram Report ---
Test Reason : Blood Pressure : / mmHG Vent. Rate : 060 BPM Atrial Rate : 060 BPM P-R Int : 180 ms QRS Dur : 074 ms QT Int : 404 ms P-R-T Axes : 065 069 045 degrees QTc Int : 404 ms Normal sinus rhythm Normal ECG When compared with ECG of 11-MAR-2022 05:49, No significant change was found Confirmed by Jorge Mckeon ([id number]) on 03/12/2022 10:53:15 PM Referred By: Dannie Macias Confirmed By:Jorge Mckeon
== END 2022-03-12 12:58 | disposition home or self-care (01) | DRG 392 ==
LOC: ED 10:13 → EDINP 14:20 → 2N 14:50